=== PATIENT | female | born 1950 | race African-American/Black ===

== ENCOUNTER 2022-10-15 09:33 | Outpatient (CLI) | payer MEDICARE, MEDICAID, SELFPAY ==
--- NOTE | 2022-10-15 11:00 | NEURO_ITS ---
Impression: # Complains of tingling and numbness of lower extremities. # Normal motor and sensory nerve conduction study. # Normal needle/EMG exam without fibs, myotonia or neurogenic changes. 3Clinical correlation recommended, possibility of small fiber neuropathy or central involvement cannot be ruled out. Nerve Conduction Studies Anti Sensory Summary Table Stim Site NR Peak (ms) P-T Amp (?V) Site1 Site2 Delta-P (ms) Dist (cm) Rocky (m/s) Left Sup Fibular Anti Sensory (Ant Lat Mall) 14 cm 3.0 13.1 14 cm Ant Lat Mall 3.0 16.0 53 Right Sup Fibular Anti Sensory (Ant Lat Mall) 14 cm 3.4 18.1 14 cm Ant Lat Mall 3.4 16.0 47 Left Sural Anti Sensory (Lat Mall) Calf 3.9 21.0 Calf Lat Mall 3.9 16.0 41 Right Sural Anti Sensory (Lat Mall) Calf 3.7 10.0 Calf Lat Mall 3.7 16.0 43 Motor Summary Table Stim Site NR Onset (ms) O-P Amp (mV) Site1 Site2 Delta-0 (ms) Dist (cm) Rocky (m/s) Left Peroneal Motor ([facility]) Ankle 4.0 1.8 Popit Ankle 7.7 39.0 51 Popit 11.7 1.6 Right Peroneal Motor ([facility]) Ankle 4.0 1.5 Popit Ankle 7.6 35.0 46 Popit 11.6 2.8 Left Tibial Motor (Abd Lawrence Brev) Ankle 4.5 3.7 Knee Ankle 8.8 40.0 45 Knee 13.3 3.1 Right Tibial Motor (Abd Lawrence Brev) Ankle 4.6 2.2 Knee Ankle 9.1 41.0 45 Knee 13.7 1.6 F Wave Studies NR F-Lat (ms) L-R F-Lat (ms) Left Peroneal (Mrkrs) (EDB) 49.01 0.43 Right Peroneal (Mrkrs) (EDB) 49.45 0.43 Left Tibial (Mrkrs) (Abd Hallucis) 50.63 0.11 Right Tibial (Mrkrs) (Abd Hallucis) 50.52 0.11 EMG Side Muscle Nerve Root Ins Act Fibs Amp Dur Recrt Comment Right AntTibialis Dp Br Fibular L4-5 Nml Nml Nml Nml Nml Right Gastroc Tibial S1-2 Nml Nml Nml Nml Nml Right Fibularis Long Sup Br Fibular L5-S1 Nml Nml Nml Nml Nml Right Flex Dig Long Tibial L5-S2 Nml Nml Nml Nml Nml Right Ext Dig Brev Dp Br Fibular L5, S1 Nml Nml Nml Nml Nml Left AntTibialis Dp Br Fibular L4-5 Nml Nml Nml Nml Nml Left Gastroc Tibial S1-2 Nml Nml Nml Nml Nml Left Fibularis Long Sup Br Fibular L5-S1 Nml Nml Nml Nml Nml Left Flex Dig Long Tibial L5-S2 Nml Nml Nml Nml Nml Left Ext Dig Brev Dp Br Fibular L5, S1 Nml Nml Nml Nml Nml MTDD
== END 2022-10-15 09:34 | disposition home or self-care (01) ==
PROVIDERS: PCP Internal Medicine; Visit Provider Internal Medicine
DX: G62.9 Polyneuropathy, unspecified (principal)
CPT/HCPCS: 95886; 95910

== ENCOUNTER 2024-09-01 09:18 | Outpatient (CLI) | payer MEDICARE, MEDICAID, SELFPAY ==
--- NOTE | 2024-09-01 | ECHO_ITS ---
Patient Info Name: Nessa Perez Age: 73 years : 1950 Gender: Female Ht: 60 in Wt: 144 lbs BSA: 1.68 m2 HR: 86 bpm BP: 130 / 89 mmHg Technical Quality: Good Exam Date: 09/01/2024 10:05 AM Exam Location: Echo Lab Patient Status: Outpatient Admit Date: 09/01/2024 Staff Ordering Physician: Matteo, Jose Angel Kemp MD Pipelines Supervisor: Mary Sanchez RDCS Attending Provider: Vilma, Jose Angel Kemp MD Referring Physician: Matteo BRADLEY; Exam Type: CA echo doppler color flow Study Info Indications R01.1 - Cardiac murmur, unspecified Complete two-dimensional, color flow and Doppler transthoracic echocardiogram is performed. Summary 1. Complete two-dimensional, color flow and Doppler transthoracic echocardiogram is performed. 2. Left ventricular chamber dimension is normal. 3. Left ventricular systolic function is normal, estimated at 60-65%. 4. The left ventricular diastolic function is normal. 5. E/e' 6 is not elevated. 6. There is trace mitral valve regurgitation. 7. There is trace tricuspid valve regurgitation. 8. No pulmonary hypertension, estimated pulmonary arterial systolic pressure is 17 mmHg. 9. There is trace pulmonic regurgitation. Left Ventricle E/e' 6 is not elevated. Left ventricular chamber dimension is normal. Left ventricular systolic function is normal, estimated at 60-65%. The left ventricular diastolic function is normal. Right Ventricle Right ventricular systolic function is normal and with normal TAPSE 2.2 cm. Right ventricular chamber dimension is normal. Left Atria Left atrial chamber dimension is normal. Right Atria Right atrial chamber dimension is normal. Aortic Valve The aortic valve is trileaflet. There is no aortic valve stenosis. There is no aortic valve regurgitation. Pulmonic Valve There is trace pulmonic regurgitation. Mitral Valve There is no mitral valve stenosis. There is trace mitral valve regurgitation. Tricuspid Valve There is trace tricuspid valve regurgitation. No pulmonary hypertension, estimated pulmonary arterial systolic pressure is 17 mmHg. Pericardium/Pleural There is no pericardial effusion. Inferior Vena Cava Normal inferior vena cava with >50% collapse upon inspiration consistent with normal right atrial pressure, 5 mmHg. Aorta The aortic root size at the sinus of Valsalva is normal. Left Ventricular Outflow Tract Name Value Normal LVOT 2D LVOT Diameter 1.9 cm LVOT Doppler LVOT Peak Gradient 3 mmHg LVOT Mean Gradient 2 mmHg LVOT VTI 18 cm LVOT VTI/AV VTI Ratio 0.9 LVOT Stroke Volume 51 ml LVOT CO 10.4 l/min LVOT CI 6.2 l/min/m2 Pulmonic Valve Name Value Normal PV Doppler PV Peak Gradient 5 mmHg Mitral Valve Name Value Normal MV Doppler MV Decel Mono 323 cm/s2 MV PHT 61 ms MV Area (PHT) 3.6 cm2 4.0-5.0 MV Diastolic Function MV E Peak Velocity 68 cm/s MV A Peak Velocity 73 cm/s MV E/A 0.9 MV Decel Time 209 ms MV Annular TDI MV E/e' (Septal) 6.5 <=8.0 MV E/e' (Lateral) 6.1 <=8.0 MV E/e' (Average) 6.3 Tricuspid Valve Name Value Normal TV Regurgitation Doppler TR Peak Velocity 171 cm/s TR Peak Gradient 12 mmHg Estimated PAP/RSVP RA Pressure 5 mmHg <=5 PA Systolic Pressure 17 mmHg <36 RV Systolic Pressure 17 mmHg <36 Aorta Name Value Normal Ascending Aorta Ao Root Diameter (MM) 2.7 cm Ao Root Diam Index (MM) 1.6 cm/m2 Aortic Valve Name Value Normal AV Doppler AV Peak Velocity 88 cm/s AV Peak Gradient 3 mmHg AV Mean Gradient 2 mmHg AV VTI 22 cm AV Area (Cont Eq VTI) 2.4 cm2 >=3.0 AV Area (Cont Eq Rocky) 2.8 cm2 AV Regurgitation 2D LVOT Area 2.8 cm2 Ventricles Name Value Normal LV Dimensions 2D/MM IVS Diastolic Thickness (2D) 1.0 cm 0.6-1.0 LVID Diastole (2D) 3.5 cm 3.8-5.2 LVIW Diastolic Thickness (2D) 1.0 cm 0.6-0.9 LVID Systole (2D) 2.4 cm 2.2-3.5 LVOT Diameter 1.9 cm LV Mass (2D Cubed) 103.05 g 67.00-162.00 LV Mass Index (2D Cubed) 61 g/m2 43-95 Relative Wall Thickness (2D) 0.55 LV Fractional Shortening/Ejection Fraction 2D/MM LV Fractional Shortening (2D) 31 % 27-45 LV EF (2D Teicholz) 60 % 54-74 LV Diastolic Volume (4C MOD) 65 ml LV EF (4C MOD) 66 % LV Diastolic Volume (2C MOD) 63 ml LV EF (2C MOD) 70 % LV Diastolic Volume (BP MOD) 64 ml 46-106 LV Diastolic Volume Index (BP MOD) 38 ml/m2 29-61 LV Systolic Volume (BP MOD) 20 ml 14-42 LV Systolic Volume Index (BP MOD) 12 ml/m2 8-24 LV EF (BP MOD) 68 % 54-74 LV Diastolic Length (4C) 6.6 cm LV Systolic Length (4C) 5.2 cm LV Stroke Volume (4C MOD) 43 ml Atria Name Value Normal LA Dimensions LA Dimension (MM) 2.8 cm 2.7-3.8 LA Volume (4C A-L) 26 ml LA Volume (BP A-L) 28 ml RA Dimensions RA Area (4C) 11.6 cm2 <=18.0 Report Signatures
--- OUTSIDE RECORDS SUMMARY | 2024-09-01 10:20 | XMS_ITS | Continuity of Care Document ---
Author Organization [facility] Address [address] JESUSITA Lorenzo [address] Phone Care Team Providers Care Cardiac Sonographer Name Role Phone Tarsha Huertas Unavailable Unavai [...] Diagnoses Date Provider Providers Copied on Encounter [facility], [address], [place], [place], [address] , tel: [phone] [facility] No Information Sep-0 201 1 [facility] Tarsha. [address] [facility], 4th Floor, [place], [place], [address] , [place]. tel: [phone] [facility], [address], [place], [place], [address] , tel: [phone] [facility] SCREEN MAL NEOP-CERVIXSCREEN LIPOID DISORDERSROUTINE STONEMASON SUPERVISOR EXAMINATIONMALAISE AND FATIGUE NEC Sep-200 6 Miquel Rock. [address] [facility] [address], [facility] [place], [address] . tel: [phone] [facility], [address], [place], [place], [address] , tel: [phone] [facility] SCREENING-PULMONARY TBROUTINE MEDICAL EXAMPALPITATIONS Sep- 2-200 6 Miquel Rock. [address] [facility], [facility] [address], [facility] [place], [address] . tel: [phone] [facility], [address], [place], [place], [address] , [place] tel: [phone] [facility] ANXIETY STATE NOS Jul- 5 Miquel [place]. [address] [facility], [facility] [address], [place], [place], [address] . tel: [phone] [facility], [address], [place], [place], [address] , [place] tel: [phone] [facility] ANXIETY STATE NECDEPRESSIVE DISORDER NEC 4 Miquel [place]. [address] [facility], [facility] [address], [place], [place], [address] . tel: [phone] [facility], [address], [place], [place], [address] , [place] tel: [phone] [facility] SCREEN FOR INFEC DIS NOSGYNECOLOGIC EXAMINATION 4 Miquel [place]. [address] [place] [address], [facility] [address], [place], [place], [address] . tel: [phone] [facility], [address], [place], [place], [address] , [place] tel: [phone] [facility] ADMINISTRTVE ENCOUNT NOS 3 Dez Willingham. [address] [facility], [address] [facility], [place], [place], [address] , [place]. tel: [phone] [facility], [address], [place], [place], [address] , [place] tel: [phone] [facility] ESOPHAGEAL REFLUXCHEST PAIN NOSVACCINATION FOR TD-DT 3 Miquel [place]. [address] [facility], [facility] [address], [place], [place], [address] . tel: [phone] [facility], [address], [place], [place], [address] , [place] tel: [phone] [facility] No Information 3 Dez Willingham. [address] [facility], 4th Floor, [place], [place], [address] , . tel: [phone] [facility], [address], [place], [place], [address] , tel: [phone] [facility] JOINT PAIN-ANKLE Dec- 3-200 1 Miquel Rock. [address] [facility], [facility] [address], [place], [place], [address] . tel: [phone] [facility], [address], [place], [place], [address] , tel: [phone] [facility] SYMPT FEM CLIMACT STATESCREEN-DIABETE S MELLITUSSCREEN-BLOO D DIS NOS 0 8-200 1 Miquel Rock. [address] [facility], [facility] [address], [place], [place], [address] . tel: [phone] Family History Family Member Type Diagnosis Age At Onset No Information Immunizations Vaccine Date Status Comments 81345 - TD administered Source: Source Unspecified Payers Payer name Insurance type Covered democrat ID Authoriza tion(s) No Information Social History [...]
--- OUTSIDE RECORDS SUMMARY | 2024-09-01 10:20 | XMS_ITS | Clinical Summary ---
Author Organization [facility] [employer] Address [address] [place] [address] Care Team Providers Care Diamond Grinder Name Role Phone Jose Angel Felipe MD Primary Care Provider [phone] Source Comments [facility] [employer],non-owned Affiliates and Associated Physician Practices is amultiple site organization consisting of ambulatory clinics and hospital sitesin [place], [place], [place] and [place]. This disclosure is being madepursuant to the Care Everywhere program and may not contain all information available regarding this patient. Last updated 18.[employer] Allergies No known active allergies Medications * Be aware that medications may not be up to date on this document. Alwaysverify current medications with the patient. Medication Sig Dispensed Refills Start Date End Date Status rosuvastatin (Crestor) 10 MG tablet Take 1 (one) tablet by mouth once daily Active gabapentin (Neurontin) 100 MG capsule Take 1 (one) capsule by mouth 3 times daily Active PARoxetine (Paxil) 10 MG tablet Take 1 (one) tablet by mouth once daily Active oxyCODONE, immediate release, (Roxicodone) 5 MG tabletIndications :Other closed fracture of distal end of right femur, initial encounter ([facility]) Take 1 (one) tablet by mouth every 6 hours as needed for Pain 18 tablet 06/21/2023 Active Additional Information Patient not taking.Reported on 08/12/2023 acetaminophen (Tylenol) 325 MG tablet Take 2 (two) tablets by mouth every 6 hours Maximum allowable Acetaminophen amount = 4 Grams (4000 mg) / 24 hours. 06/21/2023 Active apixaban (Eliquis) 2.5 MG tablet Take 1 (one) tablet by mouth 2 times daily for 35 days 70 tablet 06/21/2023 Active polyethylene glycol 3350 (Miralax) 17 g packet Take 17 (seventeen) g by mouth once daily 06/21/2023 Active Additional Information Patient not taking.Reported on 08/12/2023 oxyCODONE, immediate release, (Roxicodone) 5 MG tabletIndications :Trauma Take 1 (one) tablet by mouth every 6 hours as needed for Pain 18 tablet 06/22/2023 Active Additional Information Patient not taking.Reported on 08/12/2023 aspirin EC (Ecotrin) 81 MG tablet Take 1 (one) tablet by mouth 2 times daily 100 tablet 07/08/2023 Active Additional Information Patient not taking.Reported on 08/12/2023 Active Problems Problem Noted Date Diagnosed Date Acute pain due to injury 06/21/2023 Impaired mobility and ADLs 06/21/2023 Fall, initial encounter 06/17/2023 Right leg pain 06/17/2023 Other closed fracture of dis aimee end of right femur, initial encounter 06/17/2023 Social History Tobacco Use Types Packs/Day Years Used Date Smoking Tobacco: Never Smokeless Tobacco: Never Tobacco Cessation:Counseling Given: Not Answered Alcohol Use Standard Drinks/Week Comments Never 0 (1 standard drink = 0.6 oz pur e alcohol) AUDIT-C Answer Date Recorded Q1: How often do you have a drink containing alcohol? Never 06/18/2023 Q2: How many drinks containi ng alcohol do you have on a typical day when you are drinking? Patient does not drink Q3: How often do you have si x or more drinks on one occasion? Never 06/18/2023 Overall Financial Resource Strain (CARDIA) Answe r Date Recorded How hard is it for you to pa y for the very basics like food, housing, medical care, and heating? Not hard at all 06/18/2023 PHQ-2 Answer Date Recorded Patient Health Questionnaire-2 Score 0 04/27/2024 [facility] - Occupational Stress Questionnaire Answer Date Recorded Do you feel stress - tense, restless, nervous, or anxious, or unable to sleep at night because your mind is troubled all the time - these days? Not at all 06/18/2023 Hunger Vital Sign Answer Date Recorded Within the past 12 months, y ou worried that your food would run out before you got the money to buy more. Never true 06/18/19 24 Within the past 12 months, t he food you bought just didn't last and you didn't have money to get more. Never true 06/18/2023 PRAPARE - Transportation Answer Date Re corded In the past 12 months, has l ack of transportation kept you from medical appointments or from getting medications? No 10/2023 In the past 12 months, has l ack of transportation kept you from meetings, work, or from getting things needed for daily living? No 06/18/2023 Housing Stability Vital Sign Answer Inocente e Recorded In the last 12 months, was t here a time when you were not able to pay the mortgage or rent on time? No 06/18/2023 In the last 12 months, how many places have you lived? 1 06/18/2023 In the last 12 months, was t here a time when you did not have a steady place to sleep or slept in a fpc (including now)? No 06/18/2023 Sex and Gender Information Value Date Recorded Sex Assigned at Not on file Gender Identity Not on file Sexual Orientation Not on file Last Filed Vital Signs Vital Sign Reading Time Taken Comments Blood Pressure 107/55 06/21/2023 4:23 AM FACILITIES MANAGEMENT EXECUTIVE Pulse 81 06/21/2023 4:23 AM FACILITIES MANAGEMENT EXECUTIVE Temperature 36.7 C (98.1 F) 06/21/2023 4:23 AM FACILITIES MANAGEMENT EXECUTIVE Respiratory Rate 16 06/21/2023 4:23 AM FACILITIES MANAGEMENT EXECUTIVE Oxygen Saturation 95% 06/21/2023 4:23 AM FACILITIES MANAGEMENT EXECUTIVE Inhaled Oxygen Concentration - - Weight 62.6 kg (138 lb) 04/27/2024 8:56 AM FACILITIES MANAGEMENT EXECUTIVE Height 152.4 cm (5') 01/20/2024 10:09 AM CDT Body Mass Index 26.95 01/20/2024 10:09 AM CDT Plan of Treatment Health Maintenance Due Date Last Done Comments BONE DENSITY TESTING 1950 COLOGUARD (AGES 45-75) - COLON CA SCREENING 1952 COLON MONITORING 1952 COLONOSCOPY - COLON CA SCREENING 1952 CT COLONOGRAPHY - COLON CA SCREENING 1950 Colorectal Cancer Screening 1952 FIT - COLON CA SCREENING 1952 FLEX SIG - COLON CA SCREENING 1950 MAMMOGRAM 1952 HEPATITIS C SCREENING 11/02/1970 DTAP/TDAP/TD VACCINES (1 - Tdap) 11/07/1971 PNEUMOCOCCAL VACCINE 50+ (1 of 1 - PCV) 2002 ZOSTER VACCINE (1 of 2) 2002 Respiratory Syncytial Virus (RSV) Vaccine Pt: or over 60 yrs (1 - Risk 60-74 years 1-dose series) 2012 COVID-19 VACCINE (1 - 2023- season) 2024 INFLUENZA VACCINE (#1) 2024 DEPRESSION SCREENING 06/14/2024 08/12/2023 MEDICARE AWV CALENDAR YEAR 2024 SCREENING FOR DIABETES 06/21/2026 , 06/20/2023, 06/19/2023, Additional history exists HEPATITIS B VACCINE Aged Out No longe r eligible based on patient's age to complete this topic HIB VACCINE Aged Out No longer eligi ble based on patient's age to complete this topic HPV VACCINE Aged Out No longer eligi ble based on patient's age to complete this topic MENINGOCOCCAL (Group B) VACCINE SHARED DECISION-MAKING Aged Out No longer eligible based on patient's age to complete this topic MENINGOCOCCAL GROUPS A/C/Y/W VACCINE Aged Out No longer eligible based on patient's age to complete this topic Medical Devices Implanted Type Area Preparation Department Supervisor Device Identifier Shelf Expiration Date Model / Serial / Lot Plate Implanted:Qty: 1 on 06/18/2023 by Dee Dee Jacome MD at [facility] Right: Femur [employer]s Trauma 223.407 / / Screw 3.5mm 6mm 34mm 2.5mm Ft Slf-Tap Implanted:Qty: 1 on 06/18/2023 by Dee Dee Jacome MD at [facility] Right: Fem[employer] Usa 204.834 / / Screw 3.5mm 6mm 65mm 2.5mm Ft Slf-Tap Implanted:Qty: 1 on 06/18/2023 by Dee Dee Jacome MD at [facility] Right: Fem[employer] Usa 204.865 / / Screw 3.5mm 6mm 40mm 2.5mm Ft Slf-Tap Implanted:Qty: 1 on 06/18/2023 by Dee Dee Jacome MD at [facility] Right: Fem[employer] Usa 204.840 / / Screw 3.5mm 6mm 55mm 2.5mm Ft Slf-Tap Implanted:Qty: 1 on 06/18/2023 by Dee Dee Jacome MD at [facility] Right: [employer] Usa 204.855 / / Screw Implanted:Qty: 1 on 06/18/2023 by Dee Dee Jacome MD at [facility] Right: Fem[employer] Trauma [id number] / / Screw Implanted:Qty: 1 on 06/18/2023 by Dee Dee Jacome MD at [facility] Right: Fem[employer] Trauma [id number] / / Screw 3.5mm 6mm 60mm Slf-Tap Sm Hex Sckt Implanted:Qty: 1 on 06/18/2023 by Dee Dee Jacome MD at [facility] Right: Fem[employer] Usa 204.860 / / Explanted Type Area Preparation Department Supervisor Device Identifier Shelf Expiration Date Model / Serial / Lot Screw 3.5mm 6mm 34mm 2.5mm Ft Slf-Tap Explanted:Qty: 1 on 06/18/2023 by Dee Dee Jacome MD at [facility] Right: [employer] Usa 204.834 / / Plate Explanted:Qty: 1 on 06/18/2023 by Dee Dee Jacome MD at [facility] Right: Femur [employer] Trauma 223.409 / / Plate Explanted:Qty: 1 on 06/18/2023 by Dee Dee Jacome MD at [facility] Right: Femur [employer] Trauma 241.440 / / Screw 3.5mm 6mm 38mm 2.5mm Ft Slf-Tap Explanted:Qty: 1 on 06/18/2023 by Dee Dee Jacome MD at [facility] Right: [employer] Usa 204.838 / / Screw 3.5mm 6mm 44mm 2.5mm Ft Slf-Tap Explanted:Qty: 1 on 06/18/2023 by Dee Dee Jacome MD at [facility] Right: [employer] Usa 204.844 / / Screw 3.5mm 6mm 60mm Slf-Tap Sm Hex Sckt Explanted:Qty: 1 on 06/18/2023 by Dee Dee Jacome MD at [facility] Right: Fem[employer] Usa 204.860 / / Procedures Procedure Name Priority Date/Time Associated Diagnosis Comments BASIC METABOLIC PANEL (CALCIUM TOTAL) Timed 06/21/2023 2:54 AM FACILITIES MANAGEMENT EXECUTIVE from Last 3 Months or Most Recently Relevant to Health Maintenance Results * (ABNORMAL) BASIC METABOLIC PANEL (CALCIUM TOTAL) (06/21/2023 2:54 AM FACILITIES MANAGEMENT EXECUTIVE) BUN 7 7 - 26 mg/dL 06/21/2023 4:07 AM [facility] Creatinine 0.42(L) 0.56 - 0.96 mg/dL 06/21/2023 4:07 AM [facility] Sodium 141 136 - 145 mmol/L 06/21/2023 4:07 AM [facility] Potassium 4.0 3.5 - 4.5 mmol/L 06/21/2023 4:07 AM [facility] Chloride 107 98 - 107 mmol/L 06/21/2023 4:07 AM [facility] CO2 27 22 - 29 mmol/L 06/21/2023 4:07 AM [facility] Glucose 98 70 - 115 mg/dL 06/21/2023 4:07 AM [facility] Calcium 8.2(L) 8.4 - 10.2 mg/dL 06/21/2023 4:07 AM [facility] Anion Gap 7 6 - 16 06/21/2023 4:07 AM [facility] BUN/Creatinine Ratio 17 7 - 23 06/21/2023 4:07 AM [facility] Osmolality Calculated 290 275 - 295 mOsm/kg 06/21/2023 4:07 AM [facility] eGFR by CKD-EPI >90 >=90 mL/min/1.7 3 m2 06/21/2023 4:07 AM [facility] Blood BLOOD SPECIMEN / Unknown Lab Venipuncture / Unknown 06/21/2023 2:54 AM FACILITIES MANAGEMENT EXECUTIVE 06/21/2023 3:36 AM FACILITIES MANAGEMENT EXECUTIVE Luis Quintanilla MD LAB - CHEMISTRY [facility] [address] [place] [address], [facility] [phone] from Last 3 Months or Most Recently Relevant to Health Maintenance Advance Directives * Full Code (Latest Code Status on File) Date Activated Date Inactivated Comments 06/17/2023 8:16 PM 06/21/2023 1:26 PM Care Teams Diamond Grinder Relationship Specialty Start Date End Date Jose Angel Felipe MD [address] [phone] PCP - General Internal Medicine 06/17/23
== END 2024-09-01 09:19 | disposition home or self-care (01) ==
PROVIDERS: PCP Internal Medicine; Visit Provider Internal Medicine
DX: R01.1 Cardiac murmur, unspecified (principal)
CPT/HCPCS: 93306

== ENCOUNTER 2024-12-22 14:01 | Outpatient (CLI) | payer MEDICARE, MEDICAID, SELFPAY ==
--- NOTE | ~2024-12-22 | CT_ITS ---
Noncontrast CT scan of the right knee CLINICAL HISTORY: Pain TECHNIQUE: Axial noncontrast imaging of the right knee was performed. Sagittal and coronal reformatte d images were constructed. Dose reduction technique was used on this scan by utilizing automated expo sure control and iterative reconstruction technique. The dose-length product (DLP) was 453.30 mGy-cm. Findings: There is an old, healed fracture deformity of the distal femur with medial compression plat e and multiple interlocking screws along the distal femur. No acute fracture or dislocation seen. The re is advanced osteoarthritic change of the medial and lateral compartments, with reactive sclerosis and osteophyte formation present. Mild irregularity of the articular surface the medial femoral condy le is likely related to prior trauma. There is mild to moderate degenerative change of the patellofem oral compartment, with osteophyte formation present. Extensor mechanism is grossly intact. No significant joint effusion identified. Remaining visualized musculature is grossly unremarkable. No soft tissue mass or fluid collection evident. IMPRESSION: Chronic healed fracture deformity the distal femur with associated orthopedic hardware. Advanced osteoarthritic change of the medial and lateral components, and mild to moderate degenerativ e changes of the lateral compartment. This may be at least in part on a posttraumatic basis. Reviewed, dictated and finalized at location . IMPRESSION: Chronic healed fracture deformity the distal femur with associated orthopedic h ardware. Advanced osteoarthritic change of the medial and lateral components, and mild t o moderate degenerative changes of the lateral compartment. This may be at leas t in part on a posttraumatic basis.
--- OUTSIDE RECORDS SUMMARY | 2024-12-22 14:06 | XMS_ITS | Clinical Summary ---
Author Organization [facility] Address [address] [place] [address] Care Team Providers Care Furnace Maintenance Name Role Phone Jose Angel Felipe MD Primary Care Provider [phone] Source Comments [facility],non-owned Affiliates and Associated Physician Practices is amultiple site organization consisting of ambulatory clinics and hospital sitesin [place], [place], [place] and [place]. This disclosure is being madepursuant to the Care Everywhere program and may not contain all information available regarding this patient. Last updated 18.[employer] Allergies No known active allergies Medications * Be aware that medications may not be up to date on this document. Alwaysverify current medications with the patient. rosuvastatin (Crestor) 10 MG tablet Take 1 (one) tablet by mouth once daily Active gabapentin (Neurontin) 100 MG capsule Take 1 (one) capsule by mouth 3 times daily Active PARoxetine (Paxil) 10 MG tablet Take 1 (one) tablet by mouth once daily Active oxyCODONE, immediate release, (Roxicodone) 5 MG tabletIndicati ons:Other closed fracture of distal end of right femur, initial encounter ([facility]) Take 1 (one) tablet by mouth every 6 hours as needed for Pain 18 tablet 4 Active Additional Information Patient not taking.Reported on 08/12/2023 acetaminophen (Tylenol) 325 MG tablet Take 2 (two) tablets by mouth every 6 hours Maximum allowable Acetaminophen amount = 4 Grams (4000 mg) / 24 hours. 4 Active apixaban (Eliquis) 2.5 MG tablet Take 1 (one) tablet by mouth 2 times daily for 35 days 70 tablet 4 Active polyethylene glycol 3350 (Miralax) 17 g packet Take 17 (seventeen) g by mouth once daily 4 Active Additional Information Patient not taking.Reported on 08/12/2023 oxyCODONE, immediate release, (Roxicodone) 5 MG tabletIndicati ons:Trauma Take 1 (one) tablet by mouth every 6 hours as needed for Pain 18 tablet 4 Active Additional Information Patient not taking.Reported on 08/12/2023 aspirin EC (Ecotrin) 81 MG tablet Take 1 (one) tablet by mouth 2 times daily 100 tablet 4 Active Additional Information Patient not taking.Reported on 08/12/2023 Active Problems Problem Noted Date Diagnosed Date Acute pain due to injury 06/21/2023 Impaired mobility and ADLs 06/21/2023 Fall, initial encounter 06/17/2023 Right leg pain 06/17/2023 Other closed fracture of dis aimee end of right femur, initial encounter 06/17/2023 Encounters Date Type Department Care Team Description 11/09/2024 9:30 AM CDT Office Visit [facility] - Orthopedics [address] [place] [phone] Dee Dee Jacome MD Other closed fracture of distal end of right femur with routine healing, subsequent encounter (Primary Dx) 11/09/2024 9:08 AM CDT - 11/09/2024 11:59 PM CDT Hospital Encounter [facility] [address] [place] [address] Dee Dee Jacome MD Discharge Disposition: Home or Self Care 11/09/2024 Travel 11/08/2024 Orders Only [facility] - [facility]ics [address] [place] [phone] Dee Dee Jacome MD Other closed fracture of distal end of right femur with routine healing, subsequent encounter 11/08/2024 Travel from Last 3 Months Social History Tobacco Use Types Packs/Day Years [...] Recorded Patient Health Questionnaire-2 Score 0 04/27/2024 [facility] Occupat ional Health - Occupational Stress [...] place to sleep or slept in a custodial (including now)? No 06/18/2023 Comments No Sex and Gender Information Value Date Recorded Sex Assigned at Not on file Legal Sex Female 5:51 AM RESEARCH GEOLOGIST Gender Identity Not on file Sexual Orientation Not on file Last Filed Vital Signs Vital Sign Reading Time Taken Comments Blood Pressure 107/55 06/21/2023 4:23 AM RESEARCH GEOLOGIST Pulse 81 06/21/2023 4:23 AM RESEARCH GEOLOGIST Temperature 36.7 C (98.1 F) 06/21/2023 4:23 AM RESEARCH GEOLOGIST Respiratory Rate 16 06/21/2023 4:23 AM RESEARCH GEOLOGIST Oxygen Saturation 95% 06/21/2023 4:23 AM RESEARCH GEOLOGIST Inhaled Oxygen Concentration - - Weight 62.6 kg (138 lb) 04/27/2024 8:56 AM RESEARCH GEOLOGIST Height 152.4 cm (5') 01/20/2024 10:09 AM [...] 1-dose series) 2012 COVID-19 VACCINE (1 - season) 2024 DEPRESSION SCREENING 06/14/2024 08/12/2023 MEDICARE AWV CALENDAR YEAR 2024 INFLUENZA VACCINE (#1) 2025 SCREENING FOR DIABETES 06/21/2026 , 06/20/2023, 06/19/2023, [...] on patient's age to complete this topic Goals Goal Patient Goal Type Associated Problems Recent Progress Patient-Stated? Author PAIN General No Dalton Todd RN Note: Expected end date: 12/01/2024 Patient's pain/discomfort is manageable. Interventions: Use non-pharmacological pain managment interventions Rest Medical Devices Implanted Type Area Engineer Assistant Device Identifier Shelf Expiration Date Model / Serial / Lot Plate Implanted:Qty: 1 on 06/18/2023 by Dee Dee Jacome MD at [facility] Right: Femur Synthes Trauma 223.407 / / Screw 3.5mm 6mm 34mm 2.5mm Ft Slf-Tap Implanted:Qty: 1 on 06/18/2023 by DeeD ee Jacome MD at [facility] Right: Femur [employer] Usa 204.834 / / Screw 3.5mm 6mm 65mm 2.5mm Ft Slf-Tap Implanted:Qty: 1 on 06/18/2023 by Dee Dee Jacome MD at [facility] Right: Femur [employer] Usa 204.865 / / Screw 3.5mm 6mm 40mm 2.5mm Ft Slf-Tap Implanted:Qty: 1 on 06/18/2023 by Dee Dee Jacome MD at [facility] Right: Fem[employer] Usa 204.840 / / Screw 3.5mm 6mm 55mm 2.5mm Ft Slf-Tap Implanted:Qty: 1 on 06/18/2023 by Dee Dee Jacome MD at [facility] Right: Fem[employer] Usa 204.855 / / Screw Implanted:Qty: 1 on 06/18/2023 by Dee Dee Jacome MD at [facility] Right: Femur [employer]ynthes Trauma [id number] / / Screw Implanted:Qty: 1 on 06/18/2023 by Dee Dee Jacome MD at [facility] Right: Femur [employer] Trauma 04.334.565 / / Screw 3.5mm 6mm 60mm Slf-Tap Sm Hex Sckt Implanted:Qty: 1 on 06/18/2023 by Dee Dee Jacome MD at [facility] Right: Femur [employer] Usa 204.860 / / Explanted Type Area Engineer Assistant Device Identifier Shelf Expiration Date Model / Serial / Lot Screw 3.5mm 6mm 34mm 2.5mm Ft Slf-Tap Explanted:Qty: 1 on 06/18/2023 by Dee Dee Jacome MD at [facility] Right: Femur [employer] Usa 204.834 / / Plate Explanted:Qty: 1 on 06/18/2023 by Dee Dee Jacome MD at [facility] Right: Femur [employer] Trauma 223.409 / / Plate Explanted:Qty: 1 on 06/18/2023 by Dee Dee Jacome MD at [facility] Right: Femur [employer] Trauma 241.440 / / Screw 3.5mm 6mm 38mm 2.5mm Ft Slf-Tap Explanted:Qty: 1 on 06/18/2023 by Dee Dee Jacome MD at [facility] Right: Fem[employer] Usa 204.838 / / Screw 3.5mm 6mm 44mm 2.5mm Ft Slf-Tap Explanted:Qty: 1 on 06/18/2023 by Dee Dee Jacome MD at [facility] Right: Femur [employer] Usa 204.844 / / Screw 3.5mm 6mm 60mm Slf-Tap Sm Hex Sckt Explanted:Qty: 1 on 06/18/2023 by Dee Dee Jacome MD at [facility] Right: Femur [employer] Usa 204.860 / / Procedures Procedure Name Priority Date/Time Associated Diagnosis Comments XR KNEE RIGHT 3VW Routine 11/09/2024 9:1 7 AM CDT Other closed fracture of distal end of right femur with routine healing, subsequent encounter BASIC METABOLIC PANEL (CALCIUM TOTAL) Timed 06/21/2023 2:54 AM RESEARCH GEOLOGIST from Last 3 Months or Most Recently Relevant to Health Maintenance Results * XR Knee Right 3Vw (11/09/2024 9:17 AM CDT) Anatomical Region Laterality Modality Lower Extremity Computed Radiogr aphy 11/09/2024 11:0 2 AM CDT Impressions 11/09/2024 11:33 AM CDT IMPRESSION: Intact internal fixation of the distal femur, fracture alignment is unchanged with satisfactory progression of the healing process since the previous study. Satisfactory alignment of the fracture margins.. Report dictated by Henry Lewis MD (residential sales consultant). I, Haris Woodward MD have personally reviewed and interpreted this examination/study. > Interpreting Provider: Haris Woodward MD on 11/09/2024 11:33 AM Narrative 11/09/2024 11:33 AM CDT EXAMINATION: XR KNEE RIGHT 3VW DATE/TIME OF EXAM: 11/09/2024 9:17 AM, LOCATION [facility] HISTORY: S72.491D: Other closed fracture of distal end of right femur with routine healing, subsequent encounter fracture COMPARISON: Right knee x-ray 04/27/2024 FINDINGS: 3 views of the right knee were obtained to include AP, AP internal rotation and lateral views. There has been satisfactory progression of the healing process of the internally fixated fracture of the distal femoral shaft fracture with extension to the articular surface at the level of the right knee. The fracture line is only marginally apparent on the present study. Medially placed fixation plate and multiple screws appear relatively similar in alignment and positioning. Similar tricompartmental osteoarthritis of the knee. No significant joint effusion is seen. Bones are osteopenic. No significant soft tissue swelling is present. Procedure Note Haris Woodward MD - 11/09/2024 EXAMINATION: XR KNEE RIGHT 3VW DATE/TIME OF EXAM: 11/09/2024 9:17 AM, LOCATION [facility] HISTORY: S72.491D: Other closed fracture of distal end of right femurwith routine healing, subsequent encounter fracture COMPARISON: Right knee x-ray 04/27/2024 FINDINGS: 3 views of the right knee were obtained to include AP, AP internal rotation and lateral views. There has been satisfactory progression of the healing process of the internally fixated fracture of the distal femoral shaft fracture with extension to the articularsurface at the level of the right knee. The fracture line is only marginally apparent on the present study. Medially placed fixation plate andmultiple screws appear relatively similar in alignment and positioning. Similar tricompartmental osteoarthritis of the knee. No significantjoint effusion is seen. Bones are osteopenic. No significant soft tissueswelling is present. IMPRESSION: Intact internal fixation of the distal femur, fracture alignment is unchanged with satisfactory progression of the healing process since the previous study. Satisfactory alignment of the fracture margins.. Report dictated by Henry Lewis MD (residential sales consultant). I, Haris Woodward MD have personally reviewed and interpreted this examination/study. > Interpreting Provider: Haris Woodward MD on 11/09/2024 11:33 AM Dee Dee Jacome MD DIAGNOSTIC IMAGING ORDERABL ES Final Result * (ABNORMAL) BASIC METABOLIC PANEL (CALCIUM TOTAL) (06/21/2023 2:54 AM [facility]) BUN 7 7 - 26 mg/dL 06/21/2023 4:07 AM [facility] Creatinine 0.42(L) 0.56 - 0.96 mg/dL 06/21/2023 4:07 AM [facility] Sodium 141 136 - 145 mmol/L 06/21/2023 4:07 AM [facility] Potassium 4.0 3.5 - 4.5 mmol/L 06/21/2023 4:07 AM [facility] Chloride 107 98 - 107 mmol/L 06/21/2023 4:07 AM [facility] CO2 27 22 - 29 mmol/L 06/21/2023 4:07 AM [facility] Glucose 98 70 - 115 mg/dL 06/21/2023 4:07 AM [facility] Calcium 8.2(L) 8.4 - 10.2 mg/dL 06/21/2023 4:07 AM [facility] Anion Gap 7 6 - 16 06/21/2023 4:07 AM [facility] BUN/Creatinine Ratio 17 7 - 23 06/21/2023 4:07 AM [facility] Osmolality Calculated 290 275 - 295 mOsm/kg 06/21/2023 4:07 AM [facility] eGFR by CKD-EPI >90 >=90 mL/min/1.7 3 m2 06/21/2023 4:07 AM [facility] Blood BLOOD SPECIMEN / Unknown Lab Venipuncture / Unknown 06/21/2023 2:54 AM RESEARCH GEOLOGIST 06/21/2023 3:36 AM [facility] us Luis Quintanilla MD LAB - CHEMISTRY ORDERABLES Fin al Result [facility] [address] [place] [address], [facility] [phone] from Last 3 Months or Most Recently Relevant to Health Maintenance Insurance MEDICAID - [place] [employer] MANAGED MEDICARE ADV Advance Directives * Full Code (Latest Code Status on File) Date Activated Date Inactivated Comments 06/17/2023 8:16 PM 06/21/2023 1:26 PM Care Teams Furnace Maintenance Relationship Specialty Start Date End Date Mahay, Jose Angel K, MD [address] [place] [phone] PCP - General Internal Medicine 06/17/23
--- OUTSIDE RECORDS SUMMARY | 2024-12-22 14:07 | XMS_ITS | Data Portability ---
Author Organization [place] - [facility] [employer], Main Office Address [address] [place] [address] Care Team Providers Care Adjunct Phlebotomy Instructor Name Role Phone OSWALDO FELIPE Primary Care Provider [phone] OSWALDO FELIPE Referring Provider Assessment Encounter Date Assessment Date Assessment LastModified by Organization Details LastModified Time 03/02/2024 03/02/2024 This note is dictated and transcribed by [employer] Direct [employer]. Branch Store Manager variances may occur. Despite proofreading, typographical errors may occur. Occasional wrong-word or 'kzubk-o-eltw' substitutions may have occurred due to the inherent limitations of voice recording. Read the chart carefully and recognize, using context, where substitutions have occurred. [email or web address] Not available 03/02/2024 13:59:45 Plan of Treatment Reminders Order Date Submit Date Provider Last Modified By Organization Details Last Modified Time Details Appointments Any 15 2024 10:15A M Oswaldo Felipe MD Not available Not available Not available Lab vitamin D, 25-hydrox y, total, serum 2024 025 [facility] (Lab), [address] [place], [address], 11/21/2024 14:11:55 CMP, serum or plasma 2024 025 [facility] (Lab), [address] [place], [address], 11/21/2024 14:11:55 lipid panel, serum 2024 025 [facility] (Lab), [address] [place], [address], 11/21/2024 14:11:55 lipid panel, serum 2023 024 [facility] (Lab), [address] [place], [address], 11/17/2023 21:13:09 CBC w/ auto diff 2023 024 [facility] (Lab), [address] [place], [address], 11/17/2023 20:32:03 vitamin D, 25-hydrox y, total, serum 2023 024 [facility] (Lab), [address] [place], [address], 11/17/2023 21:29:10 CMP, serum or plasma 2023 024 [facility] (Lab), [address] [place], [address], 11/17/2023 21:13:00 Referral None recorded. Procedures None recorded. Surgeries None recorded. Imaging MAMMO, screening , bilateral - Please call patient to schedule. [address] (Mammography) , [address], [place], [address], 11/20/2024 12:33:42 [place], marcin campos - Please call patient to schedule. 2024 025 [facility], [address], [place], [address], 09/06/2024 18:17:38 bone density [address] ([facility] Scheduling), [address] [place], [address], 12/20/2023 08:30:29 Medication Orders paroxetin e 10 mg tablet 2024 025 LAKESHIA [facility] [address] [place], [address], 07/25/2024 12:03:32 celecoxib 100 mg capsule 2023 024 [email or web address] [facility] [address] [place], [address], 11/20/2024 10:13:27 Patient TargetsNo targets recorded. Patient InstructionsNo instructions recorded. Reason for Referral None Reported. Results Created Date Observation Date Name Description Value Unit Range Abnormal Flag Note LastModifiedBy Organization Detail LastModifiedTime 11/17/19 24 11/17/2023 CBC/C OMPLE TE BLD COUNT W/DIF F white blood cells 3.4 x10'3 /uL 4.2-10 .8 low Not Available [facility] (Lab) [address] [place], [address], 11/17/2023 20:32:03 11/17/19 24 11/17/2023 CBC/C OMPLE TE BLD COUNT W/DIF F red blood cells 4.09 x10'6 /uL 3.80-5 .20 Not Available [facility] (Lab) [address] [place], [address], 11/17/2023 20:32:03 11/17/19 24 11/17/2023 CBC/C OMPLE TE BLD COUNT W/DIF F hemoglobin 13.1 g/dL 12.0-1 5.6 Not Available [facility] (Lab) [address] [place], [address], 11/17/2023 20:32:03 11/17/19 24 11/17/2023 CBC/C OMPLE TE BLD COUNT W/DIF F hematocrit 39.6 % 35.7-4 5.7 Not Available [facility] (Lab) [address] [place], [address], 11/17/2023 20:32:03 11/17/19 24 11/17/2023 CBC/C OMPLE TE BLD COUNT W/DIF F mean red cell volume 96.8 fL 82.0-9 9.0 Not Available [facility] (Lab) [address] [place], [address], 11/17/2023 20:32:03 11/17/19 24 11/17/2023 CBC/C OMPLE TE BLD COUNT W/DIF F mean red cell hemoglobin 32.0 pg 27.0-3 3.0 Not Available [facility] (Lab) [address] [place], [address], 11/17/2023 20:32:03 11/17/19 24 11/17/2023 CBC/C OMPLE TE BLD COUNT W/DIF F mean RBC HGB concentratio n 33.1 g/dL 31.0-3 6.0 Not Available [facility] (Lab) [address] [place], [address], 11/17/2023 20:32:03 11/17/19 24 11/17/2023 CBC/C OMPLE TE BLD COUNT W/DIF F red cell distribution width 12.6 % 11.8-1 5.5 Not Available [facility] (Lab) [address] [place], [address], 11/17/2023 20:32:03 11/17/19 24 11/17/2023 CBC/C OMPLE TE BLD COUNT W/DIF F platelets 237 x10'3 /uL 150-40 0 Not Available [facility] (Lab) [address] [place], [address], 11/17/2023 20:32:03 11/17/19 24 11/17/2023 CBC/C OMPLE TE BLD COUNT W/DIF F mean platelet volume 10.8 fL 9.0-12 .4 Not Available [facility] (Lab) [address] [place], [address], 11/17/2023 20:32:03 11/17/19 24 11/17/2023 CBC/C OMPLE TE BLD COUNT W/DIF F neutrophils 32.7 % 39.0-7 2.0 low Not Available [facility] (Lab) [address] [place], [address], 11/17/2023 20:32:03 11/17/19 24 11/17/2023 CBC/C OMPLE TE BLD COUNT W/DIF F lymphocytes 53.0 % 16.0-4 7.0 high Not Available [facility] (Lab) [address] [place], [address], 11/17/2023 20:32:03 11/17/19 24 11/17/2023 CBC/C OMPLE TE BLD COUNT W/DIF F monocytes 10.7 % 5.0-12 .0 Not Available [facility] (Lab) [address] [place], [address], 11/17/2023 20:32:03 11/17/19 24 11/17/2023 CBC/C OMPLE TE BLD COUNT W/DIF F eosinophils 2.7 % 1.0-7. 0 Not Available [facility] (Lab) [address] [place], [address], 11/17/2023 20:32:03 11/17/19 24 11/17/2023 CBC/C OMPLE TE BLD COUNT W/DIF F basophils 0.6 % 0.0-2. 0 Not Available [facility] (Lab) [address] [place], [address], 11/17/2023 20:32:03 11/17/19 24 11/17/2023 CBC/C OMPLE TE BLD COUNT W/DIF F immature granulocytes 0.3 % 0.00-0 .50 Not Available [facility] (Lab) [address] [place], [address], 11/17/2023 20:32:03 11/17/19 24 11/17/2023 CBC/C OMPLE TE BLD COUNT W/DIF F neutrophils, absolute count 1.11 x10'3 /uL 1.5-8. 0 low Not Available [facility] (Lab) [address] [place], [address], 11/17/2023 20:32:03 11/17/19 24 11/17/2023 CBC/C OMPLE TE BLD COUNT W/DIF F lymphocytes, absolute count 1.79 x10'3 /uL 1.07-3 .43 Not Available [facility] (Lab) [address] [place], [address], 11/17/2023 20:32:03 11/17/19 24 11/17/2023 CBC/C OMPLE TE BLD COUNT W/DIF F monocytes, absolute count 0.36 x10'3 /uL 0.29-0 .99 Not Available [facility] (Lab) [address] [place], [address], 11/17/2023 20:32:03 11/17/19 24 11/17/2023 CBC/C OMPLE TE BLD COUNT W/DIF F eosinophils, absolute count 0.09 x10'3 /uL 0.02-0 .53 Not Available [facility] (Lab) [address] [place], [address], 11/17/2023 20:32:03 11/17/19 24 11/17/2023 CBC/C OMPLE TE BLD COUNT W/DIF F basophils, absolute count 0.02 x10'3 /uL 0.01-0 .08 Not Available [facility] (Lab) [address] [place], [address], 11/17/2023 20:32:03 11/17/19 24 11/17/2023 CBC/C OMPLE TE BLD COUNT W/DIF F immature granulocytes ,absolute 0.01 x10'3 /uL 0.00-0 .05 Not Available [facility] (Lab) [address] [place], [address], 11/17/2023 20:32:03 11/17/19 24 11/17/2023 CBC/C OMPLE TE BLD COUNT W/DIF F nucleated red blood cells 0.0 % -0 Not Available [facility] (Lab) [address] [place], [address], 11/17/2023 20:32:03 11/17/19 24 11/17/2023 CBC/C OMPLE TE BLD COUNT W/DIF F NRBC# 0.00 x10'3 /uL Not Available [facility] (Lab) [address] [place], [address], 11/17/2023 20:32:03 11/17/19 24 11/17/2023 COMPR EHENS GEENA METAB OLIC PANEL sodium 139 mmol/ L 137-14 5 Not Available [facility] (Lab) [address] [place], [address], 11/17/2023 21:13:00 11/17/19 24 11/17/2023 COMPR EHENS GEENA METAB OLIC PANEL potassium 4.4 mmol/ L 3.5-5. 1 Not Available [facility] (Lab) [address] [place], [address], 11/17/2023 21:13:00 11/17/19 24 11/17/2023 COMPR EHENS GEENA METAB OLIC PANEL chloride 102 mmol/ L 98-107 Not Available [facility] (Lab) [address] [place], [address], 11/17/2023 21:13:00 11/17/19 24 11/17/2023 COMPR EHENS GEENA METAB OLIC PANEL carbon dioxide 34 mmol/ L 22-30 high Not Available [facility] (Lab) [address] [place], [address], 11/17/2023 21:13:00 11/17/19 24 11/17/2023 COMPR EHENS GEENA METAB OLIC PANEL anion gap 7.4 mmol/ L 14-22 low Not Available [facility] (Lab) [address] [place], [address], 11/17/2023 21:13:00 11/17/19 24 11/17/2023 COMPR EHENS GEENA METAB OLIC PANEL glucose 90 mg/dL 70-99 Not Available [facility] (Lab) [address] [place], [address], 11/17/2023 21:13:00 11/17/19 24 11/17/2023 COMPR EHENS GEENA METAB OLIC PANEL BUN 8 mg/dL 8-19 Not Available [facility] (Lab) [address] [place], [address], 11/17/2023 21:13:00 11/17/19 24 11/17/2023 COMPR EHENS GEENA METAB OLIC PANEL creatinine 0.61 mg/dL 0.66-1 .25 low Not Available [facility] (Lab) [address] [place], [address], 11/17/2023 21:13:00 11/17/19 24 11/17/2023 COMPR EHENS GEENA METAB OLIC PANEL GFR >60 Refer ence Range : [place] [facility] GFR Healt hy Adult : >60 mL/mi n/1.7 3 m2 Chron ic Kidne y Disea se: 15-60 mL/mi n/1.7 3 m2 Kidne y Failu re: <15/m L/min /1.73 m2 www.n iddk. nih.g ov The MDRD study equat ion has not been valid ated in child efren <18 years of age; pregn ant women ; the elder ly >85 years of age; or in some racia l or ethni c subgr oups, such as Hispa nics. Outsi de the valid ated nehal eters , estim ated GFR is less accur ate, requi ring clini holly judgm ent on a case- by-ca se basis . Clini holly inter preta tion for other races and ages must be made by the clini sanjeev. The MDRD study equat ion has not been valid ated for the evalu ation of serum creat inine relat ed to nutri magda l statu s or medic ation usage . For perso ns <18 years of age, a pedia tric GFR calcu lator is avail able on the [facility] websi te: https ://ww w.kid jerardo.o rg/pr ofess ional s/kdo qi/gf r_cal culat or Not Available [facility] (Lab) [address] [place], [address], 11/17/2023 21:13:00 11/17/19 24 11/17/2023 COMPR EHENS GEENA METAB OLIC PANEL alkaline phosphatase 104 U/L 38-126 Not Available [facility] (Lab) [address] [place], [address], 11/17/2023 21:13:00 11/17/19 24 11/17/2023 COMPR EHENS GEENA METAB OLIC PANEL alanine aminotransfe rase 20 U/L 0-35 Not Available [facility] (Lab) [address] [place], [address], 11/17/2023 21:13:00 11/17/19 24 11/17/2023 COMPR EHENS GEENA METAB OLIC PANEL aspartate aminotransfe rase 34 U/L 15-37 Not Available [facility] (Lab) [address] [place], [address], 11/17/2023 21:13:00 11/17/19 24 11/17/2023 COMPR EHENS GEENA METAB OLIC PANEL bilirubin, total 0.80 mg/dL 0.20-1 .30 Not Available [facility] (Lab) [address] [place], [address], 11/17/2023 21:13:00 11/17/19 24 11/17/2023 COMPR EHENS GEENA METAB OLIC PANEL calcium 9.6 mg/dL 8.4-10 .2 Not Available [facility] (Lab) [address] [place], [address], 11/17/2023 21:13:00 11/17/19 24 11/17/2023 COMPR EHENS GEENA METAB OLIC PANEL total protein 7.4 g/dL 6.3-8. 2 Not Available [facility] (Lab) [address] [place], [address], 11/17/2023 21:13:00 11/17/19 24 11/17/2023 COMPR EHENS GEENA METAB OLIC PANEL albumin 4.7 g/dL 3.0-4. 4 high Not Available [facility] (Lab) [address] [place], [address], 11/17/2023 21:13:00 11/17/19 24 11/17/2023 COMPR EHENS GEENA METAB OLIC PANEL globulin 2.7 g/dL 2.6-4. 2 Not Available [facility] (Lab) [address] [place], [address], 11/17/2023 21:13:00 11/17/19 24 11/17/2023 COMPR EHENS GEENA METAB OLIC PANEL A/G ratio 1.7 ratio 1.0-2. 0 Not Available [facility] (Lab) [address] [place], [address], 11/17/2023 21:13:00 11/17/19 24 11/17/2023 LIPID PANEL cholesterol 205 mg/dL 140-19 9 high NIH YADIEL NSUS RECOM MENDA TION FOR BRIONNA STERO L: ADULT CHILD LOW RISK: <200 <170 BORDE RLINE : <200- 239 ----- HIGH RISK: >240 >200 Not Available [facility] (Lab) [address] [place], [address], 11/17/2023 21:26:48 11/17/1911/17/2023 LIPID PANEL triglyceride s 169 mg/dL 0-150 high NIH YADIEL NSUS REPOR T RECOM MENDA TION FOR TRIGL YCERI TERESITA: ADULT CHILD LOW RISK: <150 ----- BODER LINE: 150-1 99 ----- HIGH RISK: >200 ----- Not Available [facility] (Lab) [address] [place], [address], 11/17/2023 21:26:48 11/17/1911/17/2023 LIPID PANEL HDL cholesterol 103 mg/dL 40- Not Available [facility] (Lab) [address] [place], [address], 11/17/2023 21:26:48 11/17/19 24 11/17/2023 LIPID PANEL LDL cholesterol, calculated 68 mg/dL 0-130 DO NOT REPOR T-LDL NIH YADIEL NSUS REPOR T RECOM MENDA TIONS FOR LDL: ADULT CHILD LOW RISK <130 <110 (OPTI MAL LDL) <100 ----- BORDE RLINE : 130-1 59 ----- HIGH RISK: >160 >130 A TRIGL YCERI DE RESUL T >400 INVAL IDATE S THE CALCU LATIO N FOR LDL FRACT IONAT ION - THE LDL RESUL T WILL NOT BE REPOR GERBER. Not Available [facility] (Lab) [address] [place], [address], 11/17/2023 21:26:48 11/17/1911/17/2023 VITAM IN D 25-HY DROXY [id number] 58.6 NG/mL 30-100 Vitam in D Statu s: Defic ient: <20 ng/mL Insuf ficie nt: 20-29 ng/mL Suffi cient : 30-10 0 ng/mL Not Available [facility] (Lab) [address] [place], [address], 11/17/2023 21:19:53 11/01/19 24 11/01/2023 screestrada joseph breas t jeremy, bilat [facility] [address] [facility] [address], [place] [address] Patimonty t Name: NESSA PEREZ Access ion #: [id number] Sex: F : 1950 6 Dictat ed By: Mikaela Paige Attend ing Physic toshia: YAKELIN FELIPE ER Orderi ng Physic toshia: YAKELIN FELIPE ER Exam Date: 2023 11:17 AM Exam Name: MG JARRELL BREAST JEREMY BILAT Admitt ing Diagno sis(es ): SCREEN ING MAMMOG GENEVIEVE WITH TOMOSY NTHESI S: REASON FOR EXAM: screen ing mammog genevieve COMPAR ESPINOZA: 2022, 2021 TECHNI QUE: Bilate ral CC and MLO views obtain ed. Images were obtain ed using a Digita l Tomosy nthesi s Unit. Standa rd 2D and 3D Tomosy nthesi s images were review ed. FINDIN GS: BREAST COMPOS ITION: The bilate ral breast s are hetero geneou sly dense, which may obscur e small masses . In the right breast , no asymme trical parenc hymal patter n, heaht ectura l distor tion, pleomo rphic microc alcifi cation s or masses . In the left breast , no asymme trical parenc hymal patter n, heath ectura l distor tion, pleomo rphic microc alcifi cation s or masses . IMPRES MELQUIADES: No findin gs of malign lulú. Recomm end annual mammog genevieve. BIRADS : 1 - Negati ve Electr onical ly Signed by: Mikaela Paige at 2023 14:43: 39 PM Page 1 [email or web address] [facility] (Imaging) [address] [facility], [place], [address], 11/02/2023 15:30:28 11/18/19 24 11/23/2022 colon oscop y scree jake (PROC ) No observ ation record ed. BARCODE Not Available 2023 17:45:10 03/13/20 24 03/13/2024 DEXA, axial skele ton [facility] [address] [facility] [place] [address] Patien t Name: NESSA PEREZ Access ion #: [id number] Sex: F : 1950 9 Dictat ed By: Jermaine Lion Attend ing Physic toshia: YAKELIN FELIPE Orderi Physic toshia: YAKELIN FELIPE Exam Date: 2023 11:15 AM Exam Name: XR DEXA-H IPS PELVIS SPINE Admitt ing Diagno sis(es ): INDICA TION: 73 years old, Female ; asympt omatic menopa use. Postme nopaus al DEXA SCAN: BONE DENSIT Y REPORT : AP SPINE (L1-L4 ) : T Score: 0.2 LEFT HIP TOTAL : T Score: -0.8 RT HIP TOTAL : T Score: -1 TOTAL BILAT HIP AVG: T Score: -0.9 10 YEAR FRACTU RE RISK* Not report ed IMPRES MELQUIADES: Osteop enia right total hip. ------ ------ ------ ------ ------ ------ ------ ------ ----- *FRAX versio n 3.08. Fractu re probab ility calcul ated for an untrea gerber patien t. Fractu re probab ility may be lower if the patien t has receiv ed treatm ent. T-scor e: compar espinoza by rosalina hines (MAIRA) to a young adult popula tion, xochilt d for sex and ethnic ity (used for postme nopaus al women and men >50 years) and classi fied by WHO criter ia. -1.0: normal Page 1 [facility] [address] [facility] [place] [address] [phone] Patien t Name: NESSA PEREZ Access ion #: [id number] Sex: F : 1950 9 Dictat ed By: Jermaine Lion Attend ing Physic toshia: YAKELIN GEORGE, VISH Orderi Physic toshia: YAKELIN FELIPE ER Exam Date: 2023 11:15 AM Exam Name: XR DEXA-H IPS PELVIS SPINE Admitt ing Diagno sis(es ): <-1.0 to >-2.5: osteop enia -2.5: osteop orosis -2.5 plus fragil ity fractu re: severe osteop orosis Z-scor e: compar ed by SD to an age, sex, and ethnic ity popula tion (used for premen opausa l women, men <50 years, and childr en instea d of T-scor e WHO criter ia 4) <-2.0: below expect ed range/ low bone densit y for age, and a cause should be sought Electr onical ly Signed by: Jermaine Lion at 2023 12:03: 18 PM Page 2 [email or web address] [facility] (Imaging) [address] [place], [address], 03/17/2024 12:56:43 09/07/19 25 09/01/2024 , echo ardio gram No observ ation record ed. [email or web address] [facility] [address], [place], [address], 11/20/2024 10:12:10 11/21/19 25 11/09/2024 XR, knee, 3 view No observ ation record ed. BARCODE Not Available 2024 18:10:13 Result Notes Documentation Provider Name and Address Organization Details Recorded Time Dexa, Axial Skeleton : [facility] [address] [place] [address] Patient Name: NESSA PEREZ Sex: F : 1950 Dictated By: Jermaine Lion Attending Physician: OSWALDO FELIPE Ordering Physician: OSWALDO FELIPE Exam Date: 03/13/2024 11:15 AM Exam Name: XR DEXA-HIPS PELVIS SPINE Admitting Diagnosis(es): INDICATION: 73 years old, Female; asymptomatic menopause. Postmenopausal DEXA SCAN: BONE DENSITY REPORT: AP SPINE (L1-L4) : T Score: 0.2 LEFT HIP TOTAL : T Score: -0.8 RT HIP TOTAL : T Score: -1 TOTAL BILAT HIP AVG: T Score: -0.9 10 YEAR FRACTURE RISK* Not reported IMPRESSION: Osteopenia right total hip. --- *FRAX version 3.08. Fracture probability calculated for an untreated patient. Fracture probability may be lower if the patient has received treatment. T-score: comparison by standard deviation (SD) to a young adult population, matched for sex and ethnicity (used for postmenopausal women and men >50 years) and classified by WHO criteria. -1.0: normal Page 1 [place] [id number] Patient Name: NESSA PEREZ Sex: F : 1950 Dictated By: Jermaine Lion Attending Physician: VISH CHACON Ordering Physician: OSWALDO FELIPE Exam Date: 03/13/2024 11:15 AM Exam Name: XR DEXA-HIPS PELVIS SPINE Admitting Diagnosis(es): <-1.0 to >-2.5: osteopenia -2.5: osteoporosis -2.5 plus fragility fracture: severe osteoporosis Z-score: compared by SD to an age, sex, and ethnicity population (used for premenopausal women, men <50 years, and children instead of T-score WHO criteria 4) <-2.0: below expected range/low bone density for age, and a cause should be sought Page 2 Dana Moreno sushant, [place] [facility] 03/17/2024 12:56:43 Problems Name Problem SNOMED Code Status Onset Date Resolution Date Notes Provider Name and Address Organization Details Recorded Time Gastroeso phageal reflux disease 712487815 Active 2022 Tamra paredes RMA null, [place] [facility] 3 08:52:56 Pain of left breast 7536779986 Active 2022 Tamra Loera n RMA null, [place] [facility] 3 08:53:09 Neuropath y 221614541 Active 2022 Tamra paredes RMA null, [place] [facility] 3 08:52:59 Pain of left shoulder joint 50404808004 496028 Active 2022 Oswaldo Felipe MD [address], [place], [address] , [facility] 3 12:52:27 Acute sinusitis 82000903 Active 2023 Tamra paredes RMA null, [place] [facility] 4 15:34:22 Impacted cerumen of bilateral ears 72817310934 80945 Active 2023 Oswaldo Felipe MD [address], [place], [address] , [facility] 4 15:12:43 Onychomyc osis of toenails 768202403 Active 2023 Nic Lea DPM [address], [place], [address] , [facility] 4 13:59:48 Dystrophi a unguium 91662582 Active 2023 Nic Lea DPM [address], [place], [address] , [facility] 4 13:59:57 Bunion 557812981 Active 2023 Nic Lea DPM [address], [place], [address] , [facility] 4 14:00:10 Hammer toe 041909233 Active 2023 Nic Lea DPM [address], [facility] [address], [place], [address] , [facility] 4 14:00:18 Heart murmur 09539202 Active 2024 Oswaldo Felipe MD [address], [facility] [address], [place], [address] , [facility] 5 12:05:29 Pain of right shoulder joint 67525901586 990976 Completed 202101/02/2022 Not Available [facility] 3 04:52:28 Backache 279275824 Completed Not Available [facility] 3 04:52:28 Screening mammograp hy Completed 202101/02/2022 Not Available [facility] 3 04:52:28 Ankle pain 308950113 Completed Not Available [facility] 3 04:52:28 Retention of urine 672913644 Active Not Available [facility] 3 04:52:28 Adult health examinati on Active 2021 Not Available [facility] 3 04:52:28 Screening for malignant neoplasm of colon Completed 202101/02/2022 Not Available [facility] 3 04:52:28 Chest pain 34044859 Completed Not Available [facility] 3 04:52:28 Knee pain Completed Not Available [facility] 3 04:52:28 Vitamin D deficienc y 87647597 Active Not Available [facility] 3 04:52:28 Depressiv e disorder 39938963 Active 2022 Tamra paredes RMA null, [place] [facility] 3 08:52:54 Hypertens geena disorder 11015747 Active 2021 Not Available [facility] 3 04:52:29 Osteoarth ritis 766697688 Active Not Available [facility] 3 04:52:29 Dizziness 183934523 Completed Not Available [facility] 3 04:52:29 Obesity 984702183 Active Not Available [facility] 3 04:52:29 Acute urinary tract infection 237504161 Completed Not Available [facility] 3 04:52:29 Bilateral tinnitus 04202749625 02 Completed 202110/01/2022 Tamra paredes RMA null, [place] [facility] 3 08:53:16 Anxiety 57173544 Active 2022 Tamra paredes RMA null, [place] [facility] 3 08:52:49 Sinus bradycard ia 35471599 Active Not Available [facility] 3 04:52:30 Hyperlipi demia 60735900 Active Not Available [facility] 3 04:52:30 Essential hypertens ion 65139617 Active Not Available [facility] 3 04:52:30 Tinnitus 30296627 Active 2021 Tamra paredes RMA null, [place] - [facility] 3 08:53:05 Allergic rhinitis 10220387 Active 2020 Not Available [facility] 3 04:52:30 Urinary tract infectiou s disease 36111582 Completed Not Available [facility] 3 04:52:30 Postmenop ausal state 71351717 Completed 202101/02/2022 Not Available [facility] 3 04:52:30 Problem Notes None recorded. Procedures Surgical History Date Name Laterality Status Provider Name and Address Organization Details Recorded Time 09/03/19 Most Recent Bone Density completed Not Available [facility] 08/12/2022 04:42:07 10/05/19 12 Date of Last Colonoscopy completed Not Available [facility] 08/12/2022 04:42:07 [place] [facility] completed Not [facility] 04:42:10 Imaging Results None recorded. Procedure Notes None recorded. Medical Equipment None Reported. Allergies Allergen ID Allergen Name Allergen Category Reaction Reaction Severity Criticality Documentation Date Start Date Code Code System Note Provider Name and Address Organization Details Recorded Time 8917 olmesarta n medicatio n Not available Not available Not available 08/12/2022 49390 4 RxNorm intol erant Not Available [facility] 05:06:46 Medications Name Sig Start Date Stop Date Status Note LastModified by Organization Details LastModified Time losartan 50 mg tablet Take 1 tablet by mouth once daily 08/18 completed Not Available Not Available Not Available cyclobenz aprine 10 mg tablet Take 1 tablet every day by oral route as needed. active GENERIC FOR FLEXERIL Not Available Not Available Not Available amoxicill in 500 mg capsule TAKE 1 CAPSULE BY MOUTH EVERY 8 HOURS 07/29 completed Not Available Not Available Not Available neomycin- polymyxin -hydrocor t 3.5 mg/mL-10, 000 unit/mL-1 % ear solution INSTILL 4 DROPS INTO AFFECTED EAR(S) BY OTIC ROUTE 3 TIMES PER DAY active Not Available Not Available No t Available paroxetin e 10 mg tablet TAKE 1 TABLET BY MOUTH ONCE DAILY active Not Available Not Available No t Available atorvasta tin 20 mg tablet TAKE 1 TABLET BY MOUTH ONCE DAILY 07/30 completed Not Available Not Available Not Available atorvasta tin 10 mg tablet TAKE 1 TABLET BY MOUTH ONCE DAILY 10/03 completed Not Available Not Available Not Available ibuprofen 800 mg tablet 08/16 completed Not Available Not Available Not Available hydrocodo ne 5 mg-acetam inophen 325 mg tablet 02/01 completed Not Available Not Available Not Available ciproflox acin 500 mg tablet active Not Available Not Available No t Available alprazola m 0.5 mg tablet 03/25 completed Not Available Not Available Not Available famotidin e 20 mg tablet TAKE 1 TABLET BY MOUTH TWICE DAILY 03/02 completed Not Available Not Available Not Available amitripty line 25 mg tablet TAKE 1 TABLET BY MOUTH ONCE DAILY 11/16 completed Not Available Not Available Not Available prednisol one acetate 1 % eye drops,[employer] pension active Not Available Not Available Not Available ciproflox acin 0.3 % eye drops 03/26 completed Not Available Not Available Not Available simvastat in 20 mg tablet Take 1 tablet every day by oral route. 08/09 completed Not Available Not Available Not Available telmisart an 80 mg tablet TAKE ONE TABLET BY MOUTH ONCE DAILY active insuranc e will not cover, changed to Diovan Not Available Not Available Not Available metoprolo l tartrate 50 mg tablet TAKE 1 TABLET BY MOUTH ONCE DAILY 10/31 completed Not Available Not Available Not Available diclofena c sodium 75 mg tablet,de layed release TAKE 1 TABLET BY MOUTH EVERY 12 HOURS NEEDED 2024 active Not Available Not Available Not Avai lable mont[place] st 10 mg tablet TAKE 1 TABLET BY MOUTH ONCE DAILY 11/16 completed Not Available Not Available Not Available hydroxyzi ne HCl 25 mg tablet TAKE 1 TABLET BY MOUTH EVERY 6 HOURS NEEDED FOR ANXIETY. 10/01 completed Not Available Not Available Not Available hydrochlo rothiazid e 25 mg tablet Take 1 tablet every day by oral route for 30 days. 09/12 completed Not Available Not Available Not Available gabapenti n 100 mg capsule TAKE 1 CAPSULE BY MOUTH THREE TIMES DAILY NEEDED active Not Available Not Available No t Available metoprolo l succinate ER 25 mg tablet,ex tended release 24 hr Take 1 tablet every day by oral route. active Not Available Not Available No t Available ergocalci ferol (vitamin D2) 1,250 mcg (50,000 unit) capsule Take 1 capsule every week by oral route for 90 days. active Not Available Not Available No t Available lisinopri l 10 mg-hydroc hlorothia zide 12.5 mg tablet Take 1 tablet twice a day by oral route. active Not Available Not Available No t Available Cipro 250 mg tablet Take 1 tablet twice a day by oral route for 5 days. 04/10 completed Not Available Not Available Not Available celecoxib 100 mg capsule TAKE 1 CAPSULE BY MOUTH TWICE DAILY NEEDED 11/20 completed Not Available Not Available Not Available fluticaso ne propionat e 50 mcg/actua tion nasal spray,[employer] pension USE 2 SPRAY(S) IN EACH NOSTRIL ONCE DAILY 03/02 completed Not Available Not Available Not Available sertralin e 50 mg tablet Take 1 tablet every day by oral route at bedtime. active Not Available Not Available No t Available Diovan 160 mg tablet Take 1 tablet every day by oral route for 30 days. active only taking 1/2 tab QD Not Available Not Available Not Available oxycodone 5 mg tablet TAKE 1 TABLET BY MOUTH EVERY 6 HOURS NEEDED FOR PAIN 11/16 completed ortho Not Available Not Available Not Available olmesarta n 20 mg tablet 09/14 completed Not Available Not Available Not Available Vitamin D3 25 mcg (1,000 unit) tablet TAKE 2 TABLET BY MOUTH ONCE DAILY active Not Available Not Available No t Available Vitamin D3 25 mcg (1,000 unit) capsule TAKE 1 CAPSULE BY MOUTH ONCE DAILY active Not Available Not Available No t Available olmesarta n 20 mg-hydroc hlorothia zide 12.5 mg tablet TAKE 1 TABLET BY MOUTH ONCE DAILY active Not Available Not Available No t Available olmesarta n 40 mg-hydroc hlorothia zide 12.5 mg tablet Take 1 tablet every day by oral route. 08/18 completed Not Available Not Available Not Available rosuvasta tin 10 mg tablet TAKE 1 TABLET BY MOUTH ONCE DAILY active Not Available Not Available No t Available rosuvasta tin 20 mg tablet TAKE 1 TABLET BY MOUTH ONCE DAILY FOR 90 DAYS active Not Available Not Available No t Available metoprolo l tartrate 25 mg tablet Take 1 tablet every day by oral route for 30 days. active Not Available Not Available No t Available chlorhexi dine gluconate 0.12 % mouthwash 10/10 completed Not Available Not Available Not Available GaviLyte- G 236 gram-22.7 4 gram-6.74 gram-5.86 gram oral solution TAKE 1/2 BY MOUTH AT 5 PM ON 11/22/22 THEN TAKE 1/2 BY MOUTH AT 5 AM ON 11/23/2201/26 completed Not Available Not Available Not Available Vitamin D3 50 mcg (2,000 unit) capsule Take 1 capsule every day by oral route. 12/08 completed Not Available Not Available Not Available Eliquis 2.5 mg tablet TAKE 1 TABLET BY MOUTH TWICE DAILY 11/16 completed Not Available Not Available Not Available Vitals Date Recorded Body height Body mass index (BMI) Body weight Body temperature Oxygen saturation Oxygen saturation in Arterial blood by Pulse oximetry Heart rate Systolic And Diastolic Provider Name and Address Organization Details Last Updated DateTime 5 152.4 cm 28.9 kg/m2 18424.6 7 g 97.3 [degF] 95 % 95 % 87 /min 116/86 mm[Hg] Estephania garay Decision [employer] [employer] [facility] 5 11:45:29 Date Recorded Body height Body mass index (BMI) Body weight Body temperature Heart rate Oxygen saturation Oxygen saturation in Arterial blood by Pulse oximetry Systolic And Diastolic Provider Name and Address Organization Details Last Updated DateTime 4 154.94 cm 27.2 kg/m2 69990.3 g 97.4 [degF] 86 /min 96 % 96 % 104/64 mm[Hg] Tamra maradiaga [facility] [employer] [facility] [employer] [facility] 4 14:36:24 Date Recorded Body height Body mass index (BMI) Body weight Body temperature Heart rate Oxygen saturation Oxygen saturation in Arterial blood by Pulse oximetry Systolic And Diastolic Provider Name and Address Organization Details Last Updated DateTime 5 152.4 cm 29.5 kg/m2 80350.4 5 g 97.4 [degF] 78 /min 97 % 97 % 136/80 mm[Hg] Tamra maradiaga [facility] [employer] [facility] 5 09:43:25 Date Recorded Heart rate Respiratory rate Body temperature Oxygen saturation Oxygen saturation in Arterial blood by Pulse oximetry Systolic And Diastolic Provider Name and Address Organization Details Last Updated DateTime 4 64 /min 14 /min 98 [degF] 97 % 97 % 120/80 mm[Hg] Bettie Robbins [employer] [employer] 4 10:51:36 Date Recorded Body height Body mass index (BMI) Body weight Provider Name and Address Organization Details Last Updated DateTime 03/02/2024 152.4 cm 24.4 kg/m2 96461.05 g Mary Hooker [employer] [employer] 03/02/2024 10:43:23 Date Recorded Body height Body mass index (BMI) Body weight Body temperature Heart rate Oxygen saturation Oxygen saturation in Arterial blood by Pulse oximetry Systolic And Diastolic Provider Name and Address Organization Details Last Updated DateTime 4 152.4 cm 28.3 kg/m2 06248.8 9 g 97.4 [degF] 68 /min 96 % 96 % 110/70 mm[Hg] Tamra maradiaga [facility] [place] [facility] [employer] [facility] 4 14:27:47 Social History Question Answer Notes LastModified by Organization Details LastModified Time Tobacco Smoking Status Former Smoker 1982 Not Available [facility] 08/12/2022 04:29:51 Do You Have An Advance Directive? Yes MIGRATION.0301 [id number] Information not available 08/12/2022 Are You Blind Or Do You Have Difficulty Seeing? No Reading Glasses MIGRATION.030 [id number] Information not available 08/12/2022 What Is Your Level Of Caffeine Consumption? Moderate MIGRATION.0301 [id number] Information not available 08/12/2022 How Much Tobacco Do You Chew? None MIGRATION.0301 069210 Information not available 08/12/2022 In The 14 Days Before Symptom Onset, Have You Had Close Contact With A Laboratory-confi rmed COVID-19 While That Case Was Ill? No MIGRATION.0301 [id number] Information not available 08/12/2022 In The 14 Days Before Symptom Onset, Have You Had Close Contact With A Person Who Is Under Investigation For COVID-19 While That Person Was Ill? No MIGRATION.0301 049684 Information not available 08/12/2022 Are You Deaf Or Do You Have Serious Difficulty Hearing? No MIGRATION.0301 [id number] Information not available 08/12/2022 What Type Of Diet Are You Following? REGULAR MIGRATION.0301 649011 Information not available 08/12/2022 What Is The Fluoride Status Of Your Home? Fluoridated MIGRATION.0301 029606 Information not available 08/12/2022 When Did You Quit Smoking? 18+yearssincelastc igarette MIGRATION.0301 [id number] Information not available 08/12/2022 Where Do You Live? [facility] MIGRATION.0301 [id number] Information not available 08/12/2022 What Was The Date Of Your Most Recent Tobacco Screening? 01/29/2022 MIGRATION.0301 [id number] Information not available 08/12/2022 What Is Your Relationship Status? MIGRATION.0301 [id number] Information not available 08/12/2022 Do You Use Your Seat Belt Or Car Seat Routinely? Yes MIGRATION.0301 [id number] Information not available 08/12/2022 Do You Have Smoke And Carbon Monoxide Detectors In Your Home? Yes MIGRATION.030 085711 Information not available 08/12/2022 At What Age Did You Start Smoking Tobacco? 19 MIGRATION.0301 650526 Information not available 08/12/2022 How Much Tobacco Do You Smoke? 0.5 PPD MIGRATION.0301 024717 Information not available 08/12/2022 Do You Use Sunscreen Routinely? No MIGRATION.0301 154561 Information not available 08/12/2022 Do You Have Difficulty Walking Or Climbing Stairs? No MIGRATION.030 924121 Information not available 08/12/2022 Sex: Unknown Functional Status Question Answer Note LastModified by [employer] ion Details LastModified Time What is your level of alcohol consumption? None MIGRATION.[id number] 026 Information not available 08/12/2022 Do you or have you ever used smokeless tobacco? Never used smokeless tobacco MIGRATION.8347683 026 Information not available 08/12/2022 Are you able to walk? YESWOREST MIGRATION.3648469 026 Information not available 08/12/2022 Do you have difficulty doing errands alone? No MIGRATION.3368504 026 Information not available 08/12/2022 Are you able to care for yourself? Yes MIGRATION.[id number] 026 Information not available 08/12/2022 What is your occupation? retired MIGRATION.2054934 026 Information not available 08/12/2022 Do you have difficulty dressing or bathing? No MIGRATION.3848375 026 Information not available 08/12/2022 Do you or have you ever used e-cigarettes or vape? Never used electronic cigarettes MIGRATION.[id number] 026 Information not available 08/12/2022 What is your exercise level? Occasional MIGRATION.[id number] 026 Information not available 08/12/2022 Mental Status Question Answer Note LastModified by [facility] Details LastModified Time Do you have difficulty concentrating, remembering or making decisions? No MIGRATION.[id number] 6 Information not available 08/12/2022 Family History Relationship Description Onset Age of this Age Resolved Age Notes LastModified by Organization Details LastModified Time Mother Diabetes mellitus MIGRATION.088 [id number] Not available 08/12/2022 04:42:14 Mother Hypertensive disorder MIGRATION.557 [id number] Not available 08/12/2022 04:42:14 Sister Diabetes mellitus MIGRATION.759 [id number] Not available 08/12/2022 04:42:14 Sister Hypertensive disorder MIGRATION.925 [id number] Not available 08/12/2022 04:42:14 Medical History Condition Response HIGH CHOLESTEROL / HYPERLIPIDEMIA Y Gynecological History Statement/Question Response Abnormal Pap N Date of Last Pap 10/28/2017 Date of Last Mammogram 09/29/2021 Date of Last Colonoscopy 10/05/2011 Most Recent Bone Density 09/02/2021 Obstetrics History GPAL:G 0 P 0 0 0 0 Immunizations Vaccine Type Date Status Note Provider Nam e and Address Organization Details Recorded Time DTaP 7 completed Not Available [facility] 08/12/2022 05:06:24 COVID-19, mRNA, LNP-S, PF, 30 mcg/0.3 mL dose 1 completed Not Available [facility] 08/12/2022 05:06:24 COVID-19, mRNA, LNP-S, PF, 30 mcg/0.3 mL dose 1 completed Not Available [facility] 08/12/2022 05:06:24 Influenza, split virus, trivalent, preservative 4 completed Not Available [facility] 08/12/2022 05:06:24 Influenza, split virus, trivalent, PF 4 completed Not Available [facility] 08/12/2022 05:06:24 Past Encounters Encounter ID Performer Location Encounter Start Date Encounter Closed Date Diagnosis/Indication Diagnosis SNOMED-CT Code Diagnosis ICD10 Code Diagnosis Note [id number] Oswaldo Felipe MD [facility] [address] [place] [address] 10/31/2020 00:00:00 10/31/2020 13:26:12 [id number] Oswaldo Felipe MD Krishna[facility] [address] [place] [address] 03/25/2021 00:00:00 03/25/2021 13:20:33 [id number] Oswaldo Felipe MD [facility] [address] [place] [address] 07/30/2021 00:00:00 07/30/2021 17:49:45 [id number] Oswaldo Felipe MD [facility] [address] [facility] [place] [address] 10/07/2021 00:00:00 10/07/2021 11:22:31 [id number] Oswaldo Felipe MD [facility] [address] [facility] [place] [address] 01/29/2022 00:00:00 01/29/2022 17:41:23 [id number] Oswaldo Felipe MD [facility] [address] [facility] [place] [address] 04/03/2022 00:00:00 04/03/2022 10:49:48 [id number] Oswaldo Felipe MD [facility] [address] [place] [address]. [place] [address] 05/04/2022 00:00:00 05/04/2022 11:07:13 [id number] Oswaldo Felipe MD [facility] [address] [place] [address]. [place] [address] 05/28/2022 00:00:00 05/28/2022 17:17:28 [id number] Oswaldo Felipe MD [facility] [address] [place] [address]. [place] [address] 07/30/2022 00:00:00 07/30/2022 11:54:43 [id number] Oswaldo Felipe MD [facility] [address] [place] [address] 08/12/2022 10:40:42 08/12/2022 11:35:30 Anxiety 91665338 F41.9 add amitriptyl ine [id number] Oswaldo Felipe MD [facility] [address] [facility] [place] [address] 09/15/2022 11:32:48 09/15/2022 12:05:54 Neuropathy 349681298 G62.9 start meds Essential hypertension 38390128 I10 she takes only half the pill, watch bp [id number] Oswaldo Felipe MD [facility] Internal Med [address] [place] [address] 10/01/2022 14:01:51 10/01/2022 14:33:23 Essential hypertension 71148819 I10 Under control Hyperlipidemia 20391476 E78.5 Better with meds Allergic rhinitis 379535 04 J30.9 Meds help Osteoarthritis 361751946 M19.90 Diclofenac helps Vitamin D deficiency 347 78284 E55.9 OTC Depressive disorder 3548 9007 F32.A better Anxiety 71006953 F41.9 better Adult heal th examination 847070776 Z00.00 Colonoscop y- 10/05/2011 , was ordered. wants to waitMammog genevieve- 10/04Dexa- 09/02Pneum onia - does not wantpap 10/29Covid Vacc- 09/08/20, 10/01/20 Neuropathy 015046582 G62 .9 meds helpNCS next month [id number] Oswaldo Felipe MD [facility] Internal Med [address] [place] [address] 01/26/2023 10:57:23 01/26/2023 11:57:58 Essential hypertension 17541587 I10 Under control Hyperlipidemia 96542263 E78.5 labs Allergic rhinitis 518168 04 J30.9 Meds help Osteoarthritis 834641590 M19.90 Diclofenac helps Vitamin D deficiency 347 31783 E55.9 OTC Depressive disorder 3548 9007 F32.A better with meds Anxiety 47064255 F41.9 better Adult heal th examination 379475790 Z00.00 Colonoscop y- 10/05/2011 , had another one 2022, no reportsMam mogram- 10/04Dexa- 09/02Pneum onia - wants to wait till next visitpap 18Covid Vacc- 09/08/20, 10/01/20 Neuropathy 563539521 G62 .9 meds help [id number] Oswaldo Felipe MD [facility] Internal Med [address] [place] [address] 03/23/2023 12:06:43 03/23/2023 12:56:20 Pain of left shoulder joint 8160083728 3669611 M25.512 ice antoni, exercises [id number] Oswaldo Felipe MD [facility] Internal Med [address] [place] [address] 11/17/2023 14:31:02 11/17/2023 15:16:57 Essential hypertension 36199693 I10 Under control Hyperlipidemia 92997642 E78.5 labs Allergic rhinitis 258929 04 J30.9 Meds help Osteoarthritis 131540197 M19.90 on prn meds Vitamin D deficiency 347 20392 E55.9 OTC Depressive disorder 3548 9007 F32.A better with meds Anxiety 05092428 F41.9 better with meds Neuropathy 753252885 G62 .9 meds help Adult heal th examination 062814347 Z00.00 Colonoscop y- 10/05/2011 , had another one 2022, no reportsMam mogram- 10/05Dexa- 09/02Pneum onia - wants to waitpap 10/29Covid Vacc- 09/08/20, 10/01/20 Postmenopausal state 764 09073 Z78.0 Impacted c erumen of bilateral ears 5314756433 525832 H61.23 Both ears cleaned and irrigated and all the wax removed, TM and canal clrear [id number] Nic Lea DPM [facility] [place] [address] [facility] [address] [place] [address] 03/02/2024 10:31:29 03/13/2024 12:04:07 Onychomycosis of toenails 928275641 B35.1 right 3rd toenailstr eatment options reviewedpa tient will return for total nail avulsion- right 3rd toenail Dystrophia unguium 66229 009 L60.3 toenails bilateral Bunion 686506152 M21.61 9 bilaterald iscussed conservati ve and surgical optionsPat ient elects to continue conservati ve optionsRet urn to clinic as needed Hammer toe 426863589 M20 .41 M20.42 as above [id number] Oswaldo Felipe MD [facility] [address] [place] [address] 03/22/2024 14:20:05 03/22/2024 14:59:52 Essential hypertension 92425175 I10 Under control Hyperlipidemia 20161694 E78.5 meds were adjusted Allergic rhinitis 930159 04 J30.9 Meds help Osteoarthritis 205595536 M19.90 on prn meds Vitamin D deficiency 347 20686 E55.9 OTC Depressive disorder 3548 9007 F32.A better with meds Anxiety 02684103 F41.9 better with meds Neuropathy 088470659 G62 .9 meds help Adult heal th examination 601657406 Z00.00 Colonoscop y- 10/05/2011 , had another one 2022, no reportsMam mogram- 10/05Dexa- 03/13/2024 Pneumonia - wants to waitpap 10/29Covid Vacc- 09/08/20, 10/01/20 [id number] Oswaldo Felipe MD [facility] Internal Med [address] [facility] [place] [address] 07/25/2024 11:25:11 07/25/2024 12:12:48 Essential hypertension 74101662 I10 Under control Hyperlipidemia 29531563 E78.5 meds were adjusted, labs next time Allergic rhinitis 990245 04 J30.9 Meds help Osteoarthritis 519819191 M19.90 on prn meds Vitamin D deficiency 347 28641 E55.9 OTC Depressive disorder 3548 9007 F32.A better with meds Anxiety 52763154 F41.9 better with meds Neuropathy 556932650 G62 .9 meds help Adult heal th examination 595424209 Z00.00 Colonoscop y- 10/05/2011 , had another one 2022, no reportsMam mogram- 10/05Dexa- 03/13/2024 DOES NOT WANT ANY VACCINATIO NPneumonia - never hadpap 10/29Covid Vacc- 09/08/20, 10/01/20 Heart murmur 66752856 R0 1.1 [id number] Oswaldo Felipe MD [facility] [address] [place] [address] 11/20/2024 09:36:32 11/20/2024 12:33:41 Essential hypertension 63094872 I10 Under control Hyperlipidemia 67894944 E78.5 meds were adjusted, labs next time Allergic rhinitis 282679 04 J30.9 Meds help Osteoarthritis 211918379 M19.90 add tylenol, voltaren gel Vitamin D deficiency 347 95678 E55.9 OTC Depressive disorder 3548 9007 F32.A better with meds Anxiety 83951694 F41.9 better with meds Neuropathy 530385131 G62 .9 meds help Adult heal th examination 725415319 Z00.00 Colonoscop y- 2022, colon polyp, hemorrhoid s, diverticul osisMammog genevieve- 10/05Dexa- 03/13/2024 DOES NOT WANT ANY VACCINATIO NPneumonia - never hadpap 10/29Covid Vacc- 09/08/20, 10/01/20 Heart murmur 45882273 R0 1.1 echo nothing significan t Screening mammography 24 457374 Z12.31 Health Concerns Section Related Observation LastModified by Organization Detai ls LastModified Time None Recorded Concern Status LastModified by Organization Details LastModified Time None Recorded Advance Directives Directive Y: Payers Insurance Date Sequence Insurance Name Policy Number Policy Dailey Covered Member ID Dailey Member ID Guarantor Name 11/17/2024 1 [place] (MEDICARE REPLACEMENT/AD VANTAGE - PPO) [id number] Nessa Perez [id number] Nessa Perez 11/17/2024 2 [place]SECONDARY PLAN WHEN MEDICARE OR MEDICARE REPLACEMENT PRIMARY) Nessa Perez [id number] Nessa Perez Notes Date Note Type Note Provider Name and Address Organization Details Recorded Time 11/17/2023 text/html Here for routine f/u, compliant to meds ears are clogged, itching 1/5 Fell and 1/6 had right femur surgery at [facility]- Displaced fractureno longer on Eliquis Anxiety- on meds, under control, no anxiety, mood is stableMeds- Paroxetine 10mg dailyHTN- under control with meds ,Meds- Olmesartan/hctz 20mg/12.5mg daily , taking half the pill Hyperlipidemia- no side effects, diet better,Meds- Rosuvastatin 10mg daily Vit d def- on otc Insomnia- on meds and helpsMeds- was on Amitriptyline 25mg daily, gabapentin helps only takes one at night Arthritis- shoulder pain off and on, no other joint pain , much betterMeds- Celecoxib 100mg BID All Rhinitis- no longer taking medsTinnitus- still not better, seen ENT, Neuropathy- feeling much better with gabapentin, takes at night only, NCS was nl Oswaldo Felipe MD [address] [facility], [facility] [address], [place], [address], [place] 11/17/2023 15:14:30 03/02/2024 text/html . Patient is a 73-year-old female she presents the office with multiple complaints. Patient states she has thickened discolored toenails as well as painful toes. Patient states she has had deformities both feet for several years she denies any treatment for this condition. Patient denies any open wounds or infection. Patient states that her toenails are also discolored and she is concerned about the appearance. Patient denies any treatment for this toenail issue. Patient denies any other complaints. Nic Lea DPM [address] [facility], [facility] [address], [place], [address], [place] 03/13/2024 08:52:01 03/22/2024 text/html Here for routine f/u, compliant to medsPT IS NOT FASTING Anxiety- on meds, under control, no anxiety, mood is stableMeds- Paroxetine 10mg dailyHTN- under control with meds ,Meds- Olmesartan/hctz 20mg/12.5mg daily , taking half the pill Hyperlipidemia- no side effects, diet better, meds were adjustedMeds- Rosuvastatin 20mg daily Vit d def- on otc Insomnia- on meds and helpsMeds- was on Amitriptyline 25mg daily, gabapentin helps only takes one at night Arthritis- shoulder pain off and on, no other joint pain , much betterMeds- Celecoxib 100mg BID All Rhinitis- no longer taking medsTinnitus- still not better, seen ENT, Neuropathy- feeling much better with gabapentin, takes at night only, NCS was balbina Felipe MD [address] [facility], [place], [address], [employer] [employer] 03/22/2024 14:55:25 07/25/2024 text/html Here for routine f/u, compliant to meds Pt is worried about being borderline diabetic bc she eats alot of grapes.Pts taste buds haven't been the same for 5 months, she is not able to taste everything like she would want to. PT IS FASTING [facility] Anxiety- on meds, under control, no anxiety, mood is stableMeds- Paroxetine 10mg dailyHTN- under control with meds ,Meds- Olmesartan/hctz 20mg/12.5mg daily , taking half the pill Hyperlipidemia- no side effects, diet better, meds were adjustedMeds- Rosuvastatin 20mg daily Vit d def- on otc Insomnia- on meds and helpsMeds- was on Amitriptyline 25mg daily, gabapentin helps only takes one at night Arthritis- shoulder pain off and on, no other joint pain , much betterMeds- Celecoxib 100mg BID prn All Rhinitis- no longer taking medsTinnitus- still not better, seen ENT, Neuropathy- feeling much better with gabapentin, takes at night only, NCS was balbina Felipe MD [address] [facility], [place], [address], [employer] 07/25/2024 12:06:35 11/20/2024 text/html Here for routine f/u, compliant to meds PT IS FASTING [facility] Does C/o right leg pain, followed up with the ortho, and had some xrays and showed it was arthritis. She is currently taking diclofenac and that it not helping. Anxiety- under control, no anxiety, mood is stable, sleeps fineMeds- Paroxetine 10mg dailyHTN- under control with meds ,Meds- Olmesartan/hctz 20mg/12.5mg daily , taking half the pill Hyperlipidemia- no side effects, diet better, meds were adjustedMeds- Rosuvastatin 20mg daily Vit d def- on otc Insomnia- on meds and helpsMeds- was on Amitriptyline 25mg daily, gabapentin helps Arthritis s/p right TKA - gets pain, was doing treadmillMeds- Diclofenac 75 bid prn All Rhinitis- no longer taking medsTinnitus- still not better, seen ENT, Neuropathy- feeling much better with gabapentin, takes at night only, NCS was nl Oswaldo Felipe MD [address] [facility] [address], [place], [address], [place] [facility] 11/20/2024 12:22:17 OBGyn Episode No OBEpisode recorded.
== END 2024-12-22 14:02 | disposition home or self-care (01) ==
LOC: ANHIMG 14:04
PROVIDERS: PCP Internal Medicine; Visit Provider Orthopaedic Surgery
DX: M17.11 Unilateral primary osteoarthritis, right knee (principal)
CPT/HCPCS: 73700

== ENCOUNTER 2025-03-14 08:27 | Outpatient (CLI) | payer MEDICARE, MEDICAID, SELFPAY ==
--- OUTSIDE RECORDS SUMMARY | 2011-02-16 19:00 | XMS_ITS | Continuity of Care Document ---
Author Organization [facility] Address [address] JESUSITA Lorenzo [address] Phone Care Team Providers Care Gasoline Service Attendant Name Role Phone Tarsha Huertas Unavailable Unavai lable Allergies, Adverse Reactions, Alerts Substance Reaction Status Criticality No Known Drug Allergies Other Active No I nformation Medications Medication Instructions Dosage Effective Dates (start - stop) Status Comments CELEXA 20MG TABS 1 QAM - Active ALPRAZOLAM 0.25 MG TABLET 1 DIRECTE - No Longer Active 08/18/[address] Miquel triplett ALPRAZOLAM 0.25 MG TABLET 1 DIRECTE - No Longer Active 08/18/[address] Miquel triplett ALPRAZOLAM 0.25 MG TABLET 1 DIRECTE - No Longer Active 06/30/[address] Miquel triplett ALPRAZOLAM 0.25MG TABS 1 DIRECTE - No Longer Active 06/19/[address] Miquel triplett ALPRAZOLAM 0.25MG TABS 1 TID - No Longer Active LIPITOR 10MG TABS 1 QPM No Longer Active CELEXA 20MG TABLET 1 QD No Longer Active 07/11/03 Patient must call office and make appt. to see doctor before more refills will be given. cm/ma RANITIDINE HCL 150MG TABS 1 BID - No Longer Active CELEXA 20MG TABLET 1 QD - No Longer Active refilled on 03/24/2002 dsl,rn CELEXA 20MG TABLET 1 QD - No Longer Active refilled on 03/24/2002 dsl,rn CELEXA 20MG TABLET 1 QD - No Longer Active refilled on 10/31/2001 Per DP/JG CELEXA 20MG TABLET 1 QD - No Longer Active TAKE 1/2 TABLET DAILY CELEXA 20MG TABS 1 QD - No Longer Active TAKE 1/2 TABLET DAILY Advance Directives Directive Yes / No Effective Date File Name No Information Encounters Encounter Description Practice Location Reason(s) For Visit Diagnoses Date Provider Providers Copied on Encounter [facility], [address], [place], [place], [address] , tel: [phone] [facility] No Information Sep-0 201 1 [facility] Tarsha. [address] [facility], 4th Floor, [place], [place], [address] , [place]. tel: [phone] [facility], [address], [place], [place], [address] , tel: [phone] [facility] SCREEN MAL NEOP-CERVIXSCREEN LIPOID DISORDERSROUTINE ACCOUNT EXECUTIVE KEY ACCOUNTS EXAMINATIONMALAISE AND FATIGUE NEC Sep-200 6 [facility] [place]. [address] [facility] [address], [facility] [place], [address] . tel: [phone] [facility], [address], [place], [place], [address] , tel: [phone] [facility] SCREENING-PULMONARY TBROUTINE MEDICAL EXAMPALPITATIONS Sep- 2-200 6 Miquel Rock. [address] [facility], [facility] [address], [facility] [place], [address] . tel: [phone] [facility], [address], [place], [place], [address] , [place] tel: [phone] [facility] ANXIETY STATE NOS Jul- 5 Miquel Rock. [address] [facility], [facility] [address], [place], [place], [address] . tel: [phone] [facility], [address], [place], [place], [address] , [place] tel: [phone] [facility] ANXIETY STATE NECDEPRESSIVE DISORDER NEC 4 Miquel Rock. [address] [facility], [facility] [address], [place], [place], [address] . tel: [phone] [facility], [address], [place], [place], [address] , [place] tel: [phone] [facility] SCREEN FOR INFEC DIS NOSGYNECOLOGIC EXAMINATION 4 Miquel Rock. [address] [place] [address], [facility] [address], [place], [place], [address] . tel: [phone] [facility], [address], [place], [place], [address] , [place] tel: [phone] [facility] ADMINISTRTVE ENCOUNT NOS 3 Dez Willingham. [address] [facility], [address] [facility], [place], [place], [address] , [place]. tel: [phone] [facility], [address], [place], [place], [address] , [place] tel: [phone] [facility] ESOPHAGEAL REFLUXCHEST PAIN NOSVACCINATION FOR TD-DT 3 Miquel Rock. [address] [facility], [facility] [address], [place], [place], [address] . tel: [phone] [facility], [address], [place], [place], [address] , [place] tel: [phone] [facility] No Information 3 Dez Willingham. [address] [facility], 4th Floor, [place], [place], [address] , . tel: [phone] [facility], [address], [place], [place], [address] , tel: [phone] [facility] JOINT PAIN-ANKLE Dec- 3-200 1 Miquel Rock. [address] [facility], [facility] [address], [place], [place], [address] . tel: [phone] [facility], [address], [place], [place], [address] , tel: [phone] [facility] SYMPT FEM CLIMACT STATESCREEN-DIABETE S MELLITUSSCREEN-BLOO D DIS NOS 0 8-200 1 Miquel Rock. [address] [facility], [facility] [address], [place], [place], [address] . tel: [phone] Family History Family Member Type Diagnosis Age At Onset No Information Immunizations Vaccine Date Status Comments 97265 - TD administered Source: Source Unspecified Payers Payer name Insurance type Covered libertarian ID Authoriza tion(s) No Information Social History Type Description Quantity Date Captured Comments Sex Female Smoking Status No Information Chief Complaint And Reason For Visit No Information Reason For Referral Reason For Referral No Information History Of Present Illness Encounter Date Complaint History Of Prese nt Illness No Information Functional Status Date Functional Assessmen t No Information Medications Administered Medication Instructions Dosage Effective Dates (start - stop) Status Comments ALPRAZOLAM 0.25MG TABS 1 TID - No Longer Active Instructions Date Instruction Additional Infor mation No Information Assessments Type Assessment Date No Information Patient Care Teams Name Effective Dates (start - stop) Status Members No Information
--- OUTSIDE RECORDS SUMMARY | 2025-03-14 08:40 | XMS_ITS | Clinical Summary ---
Author Organization [facility] Address [address] [place] [address] Care Team Providers Care Lawn Specialist Name Role Phone Jose Angel Felipe MD Primary Care Provider [phone] Source Comments [facility],non-owned Affiliates and Associated Physician Practices is amultiple site organization consisting of ambulatory clinics and hospital sitesin [place], [place], [place] and [place]. This disclosure is being madepursuant to the Care Everywhere program and may not contain all information available regarding this patient. Last updated 18.[facility] Allergies No known active allergies Medications * [...] distal end of right femur, initial encounter ([facility] Take 1 (one) tablet by mouth every [...] Recorded Patient Health Questionnaire-2 Score 0 04/27/2024 [facility] of Occupat ional Health - Occupational Stress [...] place to sleep or slept in a usp (including now)? No 06/18/2023 Comments No Sex and Gender Information Value Date Recorded Sex Assigned at Not on file Legal Sex Female 5:51 AM SKI INSTRUCTOR Gender Identity Not on file Sexual Orientation Not on file Last Filed Vital Signs Vital Sign Reading Time Taken Comments Blood Pressure 107/55 06/21/2023 4:23 AM SKI INSTRUCTOR Pulse 81 06/21/2023 4:23 AM SKI INSTRUCTOR Temperature 36.7 C (98.1 F) 06/21/2023 4:23 AM SKI INSTRUCTOR Respiratory Rate 16 06/21/2023 4:23 AM SKI INSTRUCTOR Oxygen Saturation 95% 06/21/2023 4:23 AM SKI INSTRUCTOR Inhaled Oxygen Concentration - - Weight 62.6 kg (138 lb) 04/27/2024 8:56 AM SKI INSTRUCTOR Height 152.4 cm (5') 01/20/2024 10:09 AM [...] - Risk 60-74 years 1-dose series) 2012 DEPRESSION SCREENING 06/14/2024 08/12/2023 MEDICARE AWV CALENDAR YEAR 2024 COVID-19 VACCINE ( - 2023- season) 2025 INFLUENZA VACCINE (#1) 2025 SCREENING FOR DIABETES [...] Progress Patient-Stated? Author PAIN General No Dalton Todd, RN Note: Expected end date: 12/01/2024 Patient's pain/discomfort is manageable. Interventions: Use non-pharmacological pain managment interventions Rest Medical Devices Implanted Type Area Take Out Waiter/Waitress Device Identifier Shelf Expiration Date Model / Serial / Lot Plate Implanted:Qty: 1 on 06/18/2023 by Dee Dee Jacome MD at [facility] Right: [employer] Trauma [id number] / / Screw 3.5mm 6mm 34mm 2.5mm Ft Slf-Tap Implanted:Qty: 1 on 06/18/2023 by Dee Dee Jacome MD at [facility] Right: [employer] 204.834 / / Screw 3.5mm 6mm 65mm 2.5mm Ft Slf-Tap Implanted:Qty: 1 on 06/18/2023 by Dee Dee Jacome MD at [facility] Right: [employer] 204.865 / / Screw 3.5mm 6mm 40mm 2.5mm Ft Slf-Tap Implanted:Qty: 1 on 06/18/2023 by Dee Dee Jacome MD at [facility] Right: [employer] 204.840 / / Screw 3.5mm 6mm 55mm 2.5mm Ft Slf-Tap Implanted:Qty: 1 on 06/18/2023 by Dee Dee Jacome MD at [facility] Right: [employer] 204.855 / / Screw Implanted:Qty: 1 on 06/18/2023 by Dee Dee Jacome MD at [facility] Right: [employer] Trauma [id number] / / Screw Implanted:Qty: 1 on 06/18/2023 by Dee Dee Jacome MD at [facility] Right: [employer] Trauma [id number] / / Screw 3.5mm 6mm 60mm Slf-Tap Sm Hex Sckt Implanted:Qty: 1 on 06/18/2023 by Dee Dee Jacome MD at [facility] Right: [employer] 204.860 / / Explanted Type Area Take Out Waiter/Waitress Device Identifier Shelf Expiration Date Model / Serial / Lot Screw 3.5mm 6mm 34mm 2.5mm Ft Slf-Tap Explanted:Qty: 1 on 06/18/2023 by Dee Dee Jacome MD at [facility] Right: [employer] 204.834 / / Plate Explanted:Qty: 1 on 06/18/2023 by Dee Dee Jacome MD at [facility] Right: [employer] Trauma 223.409 / / Plate Explanted:Qty: 1 on 06/18/2023 by Dee Dee Jacome MD at [facility] Right: [employer] Trauma 241.440 / / Screw 3.5mm 6mm 38mm 2.5mm Ft Slf-Tap Explanted:Qty: 1 on 06/18/2023 by Dee Dee Jacome MD at [facility] Right: [employer]sa 204.838 / / Screw 3.5mm 6mm 44mm 2.5mm Ft Slf-Tap Explanted:Qty: 1 on 06/18/2023 by Dee Dee Jacome MD at [facility] Right: [employer]sa 204.844 / / Screw 3.5mm 6mm 60mm Slf-Tap Sm Hex Sckt Explanted:Qty: 1 on 06/18/2023 by Dee Dee Jacome MD at [facility] Right: [employer]sa 204.860 / / Procedures Procedure Name Priority Date/Time Associated Diagnosis Comments BASIC METABOLIC PANEL (CALCIUM TOTAL) Timed 06/21/2023 2:54 AM SKI INSTRUCTOR from Last 3 Months or Most Recently Relevant to Health Maintenance Results * (ABNORMAL) BASIC METABOLIC PANEL (CALCIUM TOTAL) (06/21/2023 2:54 AM SKI INSTRUCTOR) BUN 7 7 - 26 mg/dL 06/21/2023 4:07 AM [facility] Creatinine 0.42(L) 0.56 - 0.96 mg/dL 06/21/2023 4:07 AM [facility] Sodium 141 136 - 145 mmol/L 06/21/2023 4:07 AM [facility] Potassium 4.0 3.5 - 4.5 mmol/L 06/21/2023 4:07 AM [facility] Chloride 107 98 - 107 mmol/L 06/21/2023 4:07 AM [facility] CO2 27 22 - 29 mmol/L 06/21/2023 4:07 AM [facility] Glucose 98 70 - 115 mg/dL 06/21/2023 4:07 AM [facility] Calcium 8.2(L) 8.4 - 10.2 mg/dL 06/21/2023 4:07 AM [facility] Anion Gap 7 6 - 16 06/21/2023 4:07 AM [facility] BUN/Creatinine Ratio 17 7 - 23 06/21/2023 4:07 AM [facility] Osmolality Calculated 290 275 - 295 mOsm/kg 06/21/2023 4:07 AM [facility] eGFR by CKD-EPI >90 >=90 mL/min/1.7 3 m2 06/21/2023 4:07 AM [facility] Blood BLOOD SPECIMEN / Unknown Lab Venipuncture / Unknown 06/21/2023 2:54 AM SKI INSTRUCTOR 06/21/2023 3:36 AM [facility] us Luis Quintanilla MD LAB - CHEMISTRY ORDERABLES Fin al Result [facility] [address] [place] [address], [facility] [phone] from Last 3 Months or Most Recently Relevant to Health Maintenance Insurance MEDICAID - [place] [facility] MANAGED MEDICARE ADV Advance Directives * Full Code (Latest Code Status on File) Date Activated Date Inactivated Comments 06/17/2023 8:16 PM 06/21/2023 1:26 PM Care Teams Lawn Specialist Relationship Specialty Start Date End Date Jose Angel Felipe MD [address] [id number] PCP - General Internal Medicine 06/17/23
[2025-03-14 08:48] LABS: Hematocrit 38.7 % (37.0-47.0); Hemoglobin 12.6 g/dL (12.0-15.0); Immature Granulocyte Percent A 0.3 % (0-0.5); Lymphocytes Absolute Auto 1.44 K/mm3 (0.9-3.2); Mean Corpuscular HGB Conc 32.6 g/dl (32-36); Mean Corpuscular Hemoglobin 31.8 pg (26-34); Mean Corpuscular Volume 97.7 fl (80-100); Nucleated Red Blood Cells Absolute Auto 0.000 K/mm3 (0.0-0.012); Nucleated Red Blood Cells Perc 0.0 % (0.0-0.2); Platelet Count Result 182 k/mm3 (150-375); Red Blood Count 3.96 M/mm3 (4.2-5.4); White Blood Count 3.3 K/mm3 (4.5-10.0)
[2025-03-14 09:18] LABS: Alanine Aminotransferase 18 U/L (6-35); Albumin Level 4.3 g/dL (3.5-5.1); Alkaline Phosphatase 77 U/L (38-126); Anion Gap 5 mmol/L (4-12); Aspartate Amino Transferase 32 U/L (14-36); Bilirubin,Total 0.5 mg/dL (0.2-1.3); Blood Urea Nitrogen 27 mg/dL (7-17); Calcium 9.7 mg/dL (8.4-10.2); Carbon Dioxide 29 mmol/L (22-30); Chloride 106 mmol/L (98-107); Estimated Glomerular Filt Rate > 60; Glucose 109 mg/dL (65-110); Potassium 4.0 mmol/L (3.4-5.0); Sodium 140 mmol/L (137-145); Total Protein 7.3 g/dL (6.3-8.2)
== END 2025-03-14 08:28 | disposition home or self-care (01) ==
PROVIDERS: PCP Internal Medicine; Visit Provider Orthopaedic Surgery
DX: Z51.81 Encounter for therapeutic drug level monitoring (principal); Z79.1 Long term (current) use of non-steroidal anti-inflammatories (NSAID)
CPT/HCPCS: 36415; 80053; 85025